=== PATIENT | female | born 1935 | race Caucasian/White ===

== ENCOUNTER → 2016-08-28 | Outpatient (CLI) | payer MEDICARE, BC ==
--- NOTE | 2016-08-28 17:40 | REP ---
Clinical: Trauma. Contusion. Technique: AP, lateral, bilateral oblique views of the right hand. Findings: There is acute fracture at the base of the fourth and fifth metacarpal bones. Underlying age-related osteopenia and degenerative changes appreciated. Impression: Acute fractures at the base of the fourth and fifth metacarpal bones. Signed by Roel Hunter MD 08/28/2016 05:31 P
== END ==
LOC: M WUC 17:17
PROVIDERS: ATTEND Physician Assistant
DX: S62.304A Unspecified fracture of fourth metacarpal bone, right hand, initial encounter for closed fracture (principal); S62.306A Unspecified fracture of fifth metacarpal bone, right hand, initial encounter for closed fracture; X58.XXXA Exposure to other specified factors, initial encounter; Y93.9 Activity, unspecified; Y92.9 Unspecified place or not applicable; Y99.8 Other external cause status; M89.9 Disorder of bone, unspecified; M19.041 Primary osteoarthritis, right hand

== ENCOUNTER → 2016-11-08 | Outpatient (CLI) | payer MEDICARE, BC ==
[2016-11-08 09:18] LABS: BASO % 0.4 % (0.0-1.0); EOS # 0.1 K/mm3 (0.0-0.50); EOS % 1.7 % (0.0-3.0); LARGE UNSTAINED CELL # 0.1 K/mm3 (0.0-0.4); LARGE UNSTAINED CELL % 1.4 % (0.0-4.0); LYMPH # 1.5 K/mm3 (1.5-4.5); LYMPH % 22.5 % (24.0-44.0); MEAN CORPUSCULAR HEMOGLOBIN 32.7 pg (27.0-33.0); MEAN CORPUSCULAR HGB CONC 32.6 g/dl (32.0-36.5); MEAN CORPUSCULAR VOLUME 100.2 fl (80.0-96.0); MONO # 0.4 K/mm3 (0.0-0.8); MONO % 6.7 % (0.0-5.0); NEUTROPHILS # 4.4 K/mm3 (1.8-7.7); NEUTROPHILS % 67.2 % (36.0-66.0); PLATELET COUNT, AUTOMATED 349 k/mm3 (150-450); RED CELL DISTRIBUTION WIDTH 12.8 % (11.5-14.5); WHITE BLOOD COUNT 6.5 K/mm3 (4.0-10.0)
[2016-11-08 09:47] LABS: ALBUMIN 3.7 GM/DL (3.2-5.2); ALBUMIN/GLOBULIN RATIO 1.28 (1.00-1.93); ALKALINE PHOSPHATASE 67 U/L (45-117); ALT/SGPT 13 U/L (12-78); ANION GAP 8 MEQ/L (8-16); AST/SGOT 9 U/L (15-37); BILIRUBIN,TOTAL 0.3 MG/DL (0.2-1.0); BLOOD UREA NITROGEN 15 MG/DL (7-18); CARBON DIOXIDE LEVEL 28 MEQ/L (21-32); CHLORIDE LEVEL 107 MEQ/L (98-107); CHOLESTEROL LEVEL 273 MG/DL (<200); CREATININE FOR GFR 0.76 MG/DL (0.55-1.02); GLOMERULAR FILTRATION RATE > 60.0 (>32); GLUCOSE, FASTING 106 MG/DL (83-110); POTASSIUM SERUM 4.6 MEQ/L (3.5-5.1); SODIUM LEVEL 143 MEQ/L (136-145); TOTAL PROTEIN 6.6 GM/DL (6.4-8.2); TRIGLYCERIDES LEVEL 161 MG/DL (<150)
== END ==
LOC: M WUC 08:14
PROVIDERS: ATTEND Family Medicine
DX: J44.9 Chronic obstructive pulmonary disease, unspecified (principal); E55.9 Vitamin D deficiency, unspecified; F03.91 Unspecified dementia, unspecified severity, with behavioral disturbance; E78.00 Pure hypercholesterolemia, unspecified

== ENCOUNTER 2018-02-17 00:53 | Emergency (ER) | payer MEDICARE, BC ==
[2018-02-17] MEDS: predniSONE 20 MG TAB PO (04:30)
== END 2018-02-17 04:51 | disposition home or self-care (01) ==
LOC: M ED 00:53
DX: L30.9 Dermatitis, unspecified (principal); Z88.8 Allergy status to other drugs, medicaments and biological substances; Z79.899 Other long term (current) drug therapy
CPT/HCPCS: 99282

== ENCOUNTER → 2018-04-09 | Outpatient (CLI) | payer MEDICARE, BC ==
[2018-04-09 08:45] LABS: BASO % 0.4 % (0.0-1.0); EOS # 0.2 10^3/uL (0.0-0.50); EOS % 2.1 % (0.0-3.0); HEMATOCRIT 44.2 % (36.0-47.0); HEMOGLOBIN 14.4 g/dl (12.0-15.5); IMMATURE GRANULOCYTE % 0.3 % (0-3.0); LYMPH # 1.9 10^3/uL (1.5-4.5); LYMPH % 25.2 % (24.0-44.0); MEAN CORPUSCULAR HEMOGLOBIN 31.5 pg (27.0-33.0); MEAN CORPUSCULAR HGB CONC 32.6 g/dl (32.0-36.5); MEAN CORPUSCULAR VOLUME 96.7 fl (80.0-96.0); MONO # 0.7 10^3/uL (0.0-0.8); MONO % 8.8 % (0.0-5.0); NEUTROPHILS # 4.8 10^3/uL (1.8-7.7); NEUTROPHILS % 63.2 % (36.0-66.0); PLATELET COUNT, AUTOMATED 325 10^3/uL (150-450); RED BLOOD COUNT 4.57 10^6/uL (4.00-5.40); RED CELL DISTRIBUTION WIDTH 13.1 % (11.5-14.5); WHITE BLOOD COUNT 7.5 10^3/uL (4.0-10.0)
[2018-04-09 09:17] LABS: ALBUMIN 3.8 GM/DL (3.2-5.2); ALBUMIN/GLOBULIN RATIO 1.36 (1.00-1.93); ALKALINE PHOSPHATASE 62 U/L (45-117); ALT/SGPT 14 U/L (12-78); ANION GAP 6 MEQ/L (8-16); AST/SGOT 11 U/L (7-37); BILIRUBIN,TOTAL 0.3 MG/DL (0.2-1.0); BLOOD UREA NITROGEN 18 MG/DL (7-18); CALCIUM LEVEL 10.7 MG/DL (8.8-10.2); CARBON DIOXIDE LEVEL 30 MEQ/L (21-32); CHLORIDE LEVEL 108 MEQ/L (98-107); CHOLESTEROL LEVEL 283 MG/DL (<200); CHOLESTEROL RISK RATIO 6.152 (<5); CREATININE FOR GFR 0.73 MG/DL (0.55-1.30); GLOMERULAR FILTRATION RATE > 60.0 (>32); GLUCOSE, FASTING 123 MG/DL (70-100); HDL CHOLESTEROL 46 MG/DL (>40); LDL CHOLESTEROL 186 MG/DL (<100); NON-HDL-C 237 MG/DL; POTASSIUM SERUM 4.4 MEQ/L (3.5-5.1); SODIUM LEVEL 144 MEQ/L (136-145); TOTAL PROTEIN 6.6 GM/DL (6.4-8.2); TRIGLYCERIDES LEVEL 255 MG/DL (<150)
== END ==
LOC: M WUC 08:07
DX: J44.9 Chronic obstructive pulmonary disease, unspecified (principal); E78.2 Mixed hyperlipidemia
CPT/HCPCS: 80053

== ENCOUNTER 2018-09-25 01:16 | Emergency (ER) | payer MEDICARE, BC ==
[~2018-09-25] VITALS: Ht 154.9 cm; Wt 61.8 kg
[~2018-09-25 01:16] MED LIST: ALEN70SO PO; ASPI81TA85 PO; B-12100T2 PO; C 50TAB PO; CALC600T60 PO; CO Q200C10 PO; DONETAB6 PO; FISH100049 PO; NAME28CA PO; PRED20TA PO; SERT-141 PO
[2018-09-25 01:17] VITALS: BP 170/81
[2018-09-25] MEDS ORDERED: predniSONE 20 MG TAB PO ONE (02:45)
== END 2018-09-25 02:40 | disposition home or self-care (01) ==
LOC: M ED 01:16
DX: S40.861A Insect bite (nonvenomous) of right upper arm, initial encounter (principal); S40.862A Insect bite (nonvenomous) of left upper arm, initial encounter; W57.XXXA Bitten or stung by nonvenomous insect and other nonvenomous arthropods, initial encounter; Y92.003 Bedroom of unspecified non-institutional (private) residence as the place of occurrence of the external cause; Y93.84 Activity, sleeping; F03.90 Unspecified dementia, unspecified severity, without behavioral disturbance, psychotic disturbance, mood disturbance, and anxiety; Z88.8 Allergy status to other drugs, medicaments and biological substances; Z79.899 Other long term (current) drug therapy; Z79.82 Long term (current) use of aspirin

== ENCOUNTER → 2019-04-12 | Outpatient (CLI) | payer MEDICARE, BC ==
[2019-04-12 10:09] LABS: BASO % 0.4 % (0.0-1.0); EOS # 0.2 10^3/uL (0.0-0.5); EOS % 2.3 % (0.0-3.0); HEMATOCRIT 44.8 % (36.0-47.0); LYMPH # 1.5 10^3/uL (1.5-5.0); MEAN CORPUSCULAR HEMOGLOBIN 31.1 pg (27.0-33.0); MEAN CORPUSCULAR HGB CONC 31.3 g/dl (32.0-36.5); MEAN CORPUSCULAR VOLUME 99.6 fl (80.0-96.0); MONO # 0.7 10^3/uL (0.0-0.8); MONO % 9.6 % (0.0-5.0); NEUTROPHILS # 4.7 10^3/uL (1.5-8.5); NEUTROPHILS % 66.3 % (36.0-66.0); PLATELET COUNT, AUTOMATED 338 10^3/uL (150-450); WHITE BLOOD COUNT 7.1 10^3/uL (4.0-10.0)
[2019-04-12 10:36] LABS: ALT/SGPT 17 U/L (12-78); BILIRUBIN,TOTAL 0.3 MG/DL (0.2-1.0); BLOOD UREA NITROGEN 12 MG/DL (7-18); CALCIUM LEVEL 10.5 MG/DL (8.8-10.2); CARBON DIOXIDE LEVEL 31 MEQ/L (21-32); CHLORIDE LEVEL 107 MEQ/L (98-107); CHOLESTEROL LEVEL 275 MG/DL (<200); CREATININE FOR GFR 0.72 MG/DL (0.55-1.30); GLOMERULAR FILTRATION RATE > 60.0 (>32); GLUCOSE, FASTING 94 MG/DL (70-100); POTASSIUM SERUM 4.2 MEQ/L (3.5-5.1); SODIUM LEVEL 143 MEQ/L (136-145); TRIGLYCERIDES LEVEL 246 MG/DL (<150)
[2019-04-12 10:37] LABS: ALBUMIN 3.5 GM/DL (3.2-5.2); CHOLESTEROL RISK RATIO 5.612 (<5); HDL CHOLESTEROL 49 MG/DL (>40); LDL CHOLESTEROL 177 MG/DL (<100); NON-HDL-C 226 MG/DL; TOTAL PROTEIN 6.9 GM/DL (6.4-8.2)
[2019-04-12 10:47] LABS: TOTAL 25(OH) VITAMIN D 47.2 NG/ML (30.0-100.0)
== END ==
LOC: M WUC 08:17
PROVIDERS: ATTEND Family Medicine
DX: F03.91 Unspecified dementia, unspecified severity, with behavioral disturbance (principal); J44.9 Chronic obstructive pulmonary disease, unspecified; E78.2 Mixed hyperlipidemia

== ENCOUNTER → 2020-04-10 | Outpatient (CLI) | payer MEDICARE, BC ==
[~2020-04-10] MED LIST changes: -ASPI81TA85 PO; +ASPI81TA86 PO
[2020-04-10 10:28] LABS: BASO % 0.5 % (0.0-1.0); EOS # 0.2 10^3/uL (0.0-0.5); EOS % 2.4 % (0.0-3.0); HEMATOCRIT 44.8 % (36.0-47.0); LYMPH # 1.8 10^3/uL (1.5-5.0); LYMPH % 26.5 % (24.0-44.0); MEAN CORPUSCULAR HEMOGLOBIN 30.4 pg (27.0-33.0); MEAN CORPUSCULAR HGB CONC 31.3 g/dl (32.0-36.5); MEAN CORPUSCULAR VOLUME 97.2 fl (80.0-96.0); MONO # 0.6 10^3/uL (0.0-0.8); MONO % 9.6 % (0.0-5.0); NEUTROPHILS % 60.7 % (36.0-66.0); PLATELET COUNT, AUTOMATED 406 10^3/uL (150-450); RED BLOOD COUNT 4.61 10^6/uL (4.00-5.40); WHITE BLOOD COUNT 6.6 10^3/uL (4.0-10.0)
[2020-04-10 10:56] LABS: ALBUMIN 3.5 GM/DL (3.2-5.2); ALT/SGPT 9 U/L (12-78); BILIRUBIN,TOTAL 0.3 MG/DL (0.2-1.0); BLOOD UREA NITROGEN 17 MG/DL (7-18); CALCIUM LEVEL 10.9 MG/DL (8.8-10.2); CARBON DIOXIDE LEVEL 29 MEQ/L (21-32); CHLORIDE LEVEL 107 MEQ/L (98-107); GLOMERULAR FILTRATION RATE > 60.0 (>32); GLUCOSE, FASTING 107 MG/DL (70-100); POTASSIUM SERUM 4.4 MEQ/L (3.5-5.1); SODIUM LEVEL 143 MEQ/L (136-145); TOTAL PROTEIN 6.7 GM/DL (6.4-8.2)
== END ==
LOC: M WUC 08:08
PROVIDERS: ATTEND Family Medicine
DX: F03.91 Unspecified dementia, unspecified severity, with behavioral disturbance (principal)

== ENCOUNTER 2021-02-14 18:23 | Observation (INO) | payer MEDICARE, BC ==
[~2021-02-14] VITALS: Ht 152.4 cm; Wt 51.1 kg
[2021-02-14] MEDS: ASPIRIN 81MG ENTERIC TABLET PO SCH (18:00)
[2021-02-14 21:02] LABS: BASO % 0.2 % (0.0-1.0); HEMATOCRIT 43.8 % (36.0-47.0); LYMPH # 1.1 10^3/uL (1.5-5.0); MEAN CORPUSCULAR HEMOGLOBIN 30.4 pg (27.0-33.0); MONO # 0.4 10^3/uL (0.0-0.8); MONO % 3.2 % (2.0-8.0); NEUTROPHILS # 10.6 10^3/uL (1.5-8.5); NEUTROPHILS % 87.4 % (36.0-66.0); PLATELET COUNT, AUTOMATED 386 10^3/uL (150-450); RED BLOOD COUNT 4.61 10^6/uL (4.00-5.40); WHITE BLOOD COUNT 12.2 10^3/uL (4.0-10.0)
--- NOTE | 2021-02-14 21:05 | REPVR ---
PROCEDURE INFORMATION: Exam: CT Head Without Contrast Exam date and time: 02/14/2021 8:42 PM Age: 85 years old Clinical indication: Dizziness; Additional info: Dizziness/dry heaves, eval for ich TECHNIQUE: Imaging protocol: Computed tomography of the head without contrast. Radiation optimization: All CT scans at this facility use at least one of these dose optimization techniques: automated exposure control; mA and/or kV adjustment per patient size (includes targeted exams where dose is matched to clinical indication); or iterative reconstruction. COMPARISON: No relevant prior studies available. FINDINGS: Brain: No intracranial mass, mass effect or midline shift. No acute intracranial hemorrhage. No CT evidence of acute cortical infarct. Ventricles, cisterns, and sulci are normal in size for age. Paranasal sinuses: Imaged paranasal sinuses are normally aerated. Mastoid air cells: Mastoid air cells and middle ear structures are normally aerated. Orbital cavity: Imaged orbits are unremarkable. Bones/joints: No calvarial fracture or destructive process. Soft tissues: No focal extracranial soft tissue swelling. IMPRESSION: No acute or concerning focal intracranial abnormality. Electronically signed by: Sree Allen On 02/14/2021 21:04:35 PM
--- NOTE | 2021-02-14 21:11 | REPVR ---
PROCEDURE INFORMATION: Exam: XR Chest Exam date and time: 02/14/2021 9:08 PM Age: 85 years old Clinical indication: Other: Dizzyness; Additional info: Dizziness TECHNIQUE: Imaging protocol: XR of the chest. Views: 2 views. COMPARISON: No relevant prior studies available. FINDINGS: Lungs: Degree of inflation of the lungs is normal. No evidence of pulmonary edema. No focal airspace process. No concerning parenchymal lung mass. Pleural spaces: No pleural effusion or pneumothorax. Heart/Mediastinum: Cardiac silhouette appears normal. No mediastinal adenopathy or hilar mass. Bones/joints: Osseous structures show no acute or concerning abnormality. IMPRESSION: No active or focal cardiopulmonary process. Electronically signed by: Sree Allen On 02/14/2021 21:10:50 PM
[2021-02-14 21:35] LABS: BLOOD UREA NITROGEN 17 MG/DL (7-18); CARBON DIOXIDE LEVEL 27 MEQ/L (21-32); CHLORIDE LEVEL 110 MEQ/L (98-107); CK-MB VALUE MASS 2.6 NG/ML (<3.6); CPK CREATINE PHOSPHOKINASE 96 U/L (26-192); CREATININE FOR GFR 0.66 MG/DL (0.55-1.30); FREE T4 0.81 NG/DL (0.76-1.46); GLOMERULAR FILTRATION RATE > 60.0 (>32); GLUCOSE, FASTING 137 MG/DL (70-100); MAGNESIUM LEVEL 2.1 MG/DL (1.8-2.4); MB/CK RELATIVE INDEX 2.71 (< OR =4); POTASSIUM SERUM 4.5 MEQ/L (3.5-5.1); SODIUM LEVEL 142 MEQ/L (136-145); THYROID STIMULATING HORMONE 0.294 uIU/ML (0.358-3.740); TROPONIN I < 0.02 NG/ML (< 0.10)
[2021-02-14] MEDS ORDERED: SERT50TA29 PO (21:59)
[2021-02-14] MEDS ORDERED: EPIN0.3I11 IM (21:59)
[2021-02-14] MEDS ORDERED: LIDOCAINE 2% 5ML JELLY UROJET TOP ONE (22:05)
[2021-02-14] MEDS ORDERED: ASPI81TA26 PO (22:56)
[2021-02-14] MEDS ORDERED: VITA-183 PO (23:04)
[2021-02-14] MEDS ORDERED: VITMTA PO (23:04)
[2021-02-14] MEDS ORDERED: [UNRECOGNIZED DRUG - CODE] PO (23:04)
[2021-02-14] MEDS ORDERED: QUET1TAB17 PO (23:04)
[2021-02-14] MEDS ORDERED: FISH1000 PO (23:04)
[2021-02-14] MEDS ORDERED: DONE10TA90 PO (23:04)
[2021-02-14] MEDS ORDERED: COQ1100C4 PO (23:04)
[2021-02-14] MEDS ORDERED: HOME MED LIST COMPLETE! XX SCH (23:05)
[2021-02-14] MEDS ORDERED: ACETAMINOPHEN TAB 650MG DOSE (2X325MG) PO PRN (23:15)
[2021-02-15 01:07] LABS: ALBUMIN 3.4 GM/DL (3.2-5.2); ALT/SGPT 12 U/L (12-78); AMYLASE 400 U/L (25-115); BILIRUBIN,TOTAL 0.2 MG/DL (0.2-1.0); BLOOD UREA NITROGEN 16 MG/DL (7-18); CALCIUM LEVEL 9.8 MG/DL (8.8-10.2); CARBON DIOXIDE LEVEL 28 MEQ/L (21-32); CHLORIDE LEVEL 111 MEQ/L (98-107); CREATININE FOR GFR 0.59 MG/DL (0.55-1.30); GLOMERULAR FILTRATION RATE > 60.0 (>32); GLUCOSE, FASTING 125 MG/DL (70-100); LIPASE 3716 U/L (73-393); POTASSIUM SERUM 4.1 MEQ/L (3.5-5.1); SODIUM LEVEL 143 MEQ/L (136-145); TOTAL PROTEIN 6.8 GM/DL (6.4-8.2)
--- NOTE | 2021-02-15 01:43 | HPEPDOC ---
General Date of Admission Feb 14, 2021 at 18:24 Date of Service: Feb 14, 2021 Chief Complaint The patient is a 85-year-old female admitted with a reason for visit of Presyncope,Sirs. Source: Patient, Family Exam Limitations: Dementia History of Present Illness Yanique Duong is an 85-year-old white female with significant history of dementia and former smoker who arrives with complaint of dizziness and presyncopal episode. Given patient's dementia HPI was assisted by patient's daughter Elizabeth who is at bedside. Pt presently denies adams, sinus congestion, sore throat, productive cough, sob, palpitations, chest pain, n/v/d, abdominal pain, weakness, sensory changes or syncope. Patient requesting to eat during exam. Reportedly, patient has been at baseline until today she was noted to bend over while in the kitchen and upon standing up reports some dizziness and then proceed to "violently drive heave" and described nausea. Patient sat down in a chair and proceeded to describe lightheadedness/dizziness for the next hour. There is a moment where patient leaned forward and it appeared as if she would pass out but she did not. Patient's daughter called other family members who are nurses to come and assess patient. Notably patient had elevated blood pressure on the right upper extremity 168/108 and left upper extremity 100/80. Her heart rate at this time was reportedly 48 patient was taken to the hospital and fortunately by that time she no longer had any complaints. Patient's daughter reports that the patient recently had seen Dr. Danielle clark and there was a question about whether or not patient had some carotid stenosis daughter to bring records for review. Of note, patient mildly tachycardic 98-1 02. Leukocytosis 12.2. Labile blood pressures 163/101 and later 147/97 heart rate without episode of bradycardia in ED. EKG normal sinus rhythm. CT head nonacute. Chest x-ray nonacute. UA negative. Given the nausea lipase was tested and showed elevation at 3647. CT abdomen pelvis pending. Patient will be admitted for further evaluation management of presenting concern Home Medications Scheduled Ascorbic Acid (Vitamin C) 500 Mg Tab, 500 MG PO DAILY, (Reported) Aspirin (Aspirin EC) 81 Mg Tablet.dr, 81 MG PO QPM, (Reported) TAKES WITH DINNER Calcium Carbonate (Calcium) 600 Mg Tab, 600 MG PO DAILY, (Reported) Cholecalciferol (Vitamin D3) (Vitamin D3) 25 Mcg Capsule, 25 MCG PO DAILY, (Reported) Cyanocobalamin (Vitamin B-12) (B-12) 1,000 Mcg Tablet.er, 1,000 MCG PO DAILY, (Reported) Donepezil HCl (Donepezil HCl) 10 Mg Tablet, 10 MG PO DAILY, (Reported) Memantine HCl (Namenda Xr) 28 Mg Cap, 28 MG PO DAILY, (Reported) Multivitamins (Thera M Plus Tablet) 1 Each Tablet, 1 TAB PO 2XW, (Reported) MONDAYS AND THURSDAYS [place]-3 Fatty Acids/Fish Oil (Fish Oil 1,000 mg Capsule) 1 Each Capsule, 1,000 MG PO DAILY, (Reported) Quetiapine Fumarate (Quetiapine Fumarate) 25 Mg Tablet, 25 MG PO QHS, (Reported) Sertraline HCl (Sertraline HCl) 50 Mg Tablet, 50 MG PO QHS, (Reported) Ubidecarenone (Co Q-10) 100 Mg Capsule, 100 MG PO DAILY, (Reported) Scheduled PRN Epinephrine (Epinephrine) 0.3 Mg/0.3 Ml Auto.injct, 0.3 MG IM ASDIRECTED PRN for ANAPHYLAXIS, (Reported) Allergies Uncoded Allergies: ANTIHISTAMINES (Allergy, Severe, RASH, 10/02/03) Past Medical History Medical History Dementia, former smoker Surgical History Right elbow and wrist surgery Family History Significant Family History: No pertinent family hx Social History * Smoker: former Smoker Alcohol: Denies Drugs: denies Recent Travel/Sick Contacts: Denies: Recent travel, Recent sick contacts Psychosocial History: Dementia Patient lives with her daughter Elizabeth who is her facilities maintenance worker A-FIB/CHADSVASC A-FIB History Current/History of A-Fib/PAF?: No Current PO Anticoag Therapy: No Review of Systems Constitutional: Denies: Chills, Fever, Night Sweats Eyes: Denies: Pain, Vision change ENT: Denies: Head Aches, Ear Pain, Dysphagia Skin: Denies: Rash, Lesions, Breakdown Pulmonary: Reports: Cough; Denies: Dyspnea Cardiovascular: Reports: Lt Headedness; Denies: Chest Pain, Palpitations, Orthopnea, Paroxysmal Noc. Dyspnea Gastrointestinal: Denies: Nausea, Vomiting, Abdominal Pain, Diarrhea Genitourinary: Denies: Dysuria, Frequency, Incontinence, Retention Hematologic: Denies: Bruising, Bleeding Excessively Musculoskeletal: Denies: Neck Pain, Back Pain, Joint Pain, Muscle Pain, Spasms Neurological: Denies: Weakness, Numbness, Change in speech, Confusion Psych: Reports: Mood Normal; Denies: Depression, Memory Issues Other systems Limited given patient's dementia and current sundown Physical Examination General Exam: Positive: Alert, No Acute Distress Eye Exam: Positive: PERRLA, Conjunctiva & lids normal, EOMI; Negative: Sclera icteric ENT Exam: Positive: Atraumatic, Mucous membr. moist/pink, Pharynx Normal Neck Exam: Positive: Supple; Negative: JVD, thyromegaly Chest Exam: Positive: Clear to auscultation, Normal air movement Heart Exam: Positive: Rate Normal, Regular Rhythm, Normal S1, Normal S2; Negative: Murmurs, Rubs Telemetry: Positive: No significant arrhythmia Abdomen Exam: Positive: Normal bowel sounds, Soft; Negative: Tenderness, Hepatospenomegaly Extremity Exam: Positive: Normal pulses; Negative: Clubbing, Cyanosis, Edema Skin Exam: Positive: Nl turgor and temperature; Negative: Breakdown, Lesion Neuro Exam: Positive: Normal Gait, Normal Speech, Cranial Nerves 3-12 NL, Reflexes 2+ Psych Exam: Positive: Mood NL, Other (Patient at baseline mentation. Oriented x2-3.) Vital Signs Vital Signs Date Time Temp Pulse Resp B/P (MAP) Pulse Ox O2 Delivery O2 Flow Rate FiO2 02/15/21 01:23 85 95 02/15/21 01:15 18 163/82 (109) Room Air 02/14/21 18:24 97.9 Laboratory Data Labs 24H Laboratory Tests 2 02/14/21 20:42: Immature Granulocyte % (Auto) 0.2, Neutrophils (%) (Auto) 87.4H, Lymphocytes (%) (Auto) 9.0L, Monocytes (%) (Auto) 3.2, Eosinophils (%) (Auto) 0.0, Basophils (%) (Auto) 0.2, Neutrophils # (Auto) 10.6H, Lymphocytes # (Auto) 1.1L, Monocytes # (Auto) 0.4, Eosinophils # (Auto) 0.0, Basophils # (Auto) 0.0, Nucleated Red Blood Cells % (auto) 0.0, Urine Color YELLOW, Urine Appearance CLEAR, Urine pH 5.0, Urine Specific [place] 1.018, Urine Protein NEGATIVE, Urine Glucose (UA) NEGATIVE, Urine Ketones NEGATIVE, Urine Blood NEGATIVE, Urine Nitrite NEGATIVE, Urine Bilirubin NEGATIVE, Urine Urobilinogen 0.2, Urine Leukocyte Esterase NEGATIVE, Urine WBC (Auto) 2, Urine RBC (Auto) 1, Urine Hyaline Casts (Auto) 0, Urine Bacteria (Auto) NEGATIVE, Urine Squamous Epithelial Cells 1, Urine Mucus (Auto) SMALL, Urine Sperm (Auto) , Anion Gap 5L, Glomerular Filtration Rate > 60.0, Calcium Level 10.0, Magnesium Level 2.1, Total Creatine Kinase 96, Creatine Kinase MB 2.6, Creatine Kinase MB Relative Index 2.71, Troponin I < 0.02, Thyroid Stimulating Hormone (TSH) 0.294L, Free Thyroxine 0.81 02/15/21 00:29: Anion Gap 4L, Glomerular Filtration Rate > 60.0, Calcium Level 9.8, Lactic Acid Level 1.0, Total Bilirubin 0.2, Aspartate Amino Transf (AST/SGOT) 10, Alanine Aminotransferase (ALT/SGPT) 12, Alkaline Phosphatase 68, Total Protein 6.8, Albumin 3.4, Albumin/Globulin Ratio 1.0L, Amylase Level 400H, Lipase 3716H CBC/BMP Laboratory Tests 02/14/21 20:42 02/15/21 00:29 Microbiology Microbiology 02/15/21 Blood Culture, Received Pending Assessment/Plan 1. Dizziness and presyncopal event: CT head negative with nonfocal neuro exam. -Positional component at onset however patient with presyncopal event while seated hours later. Consider BPPV. -There is a concern for cardiogenic association as patient had a heart rate in the 40s when family checked at home. Plan to monitor patient, telemetry. -Given reports from family will obtain carotid ultrasound in a.m. -Consider echo and further work-up pending patient response. -Orthostatic vitals -A.m. labs -Consider differential 2. SIRS in setting of new found renal mass and enhancing lesion in the right liver dome: Patient with episode of nausea/dry heaving. She is with leukocytosis and tachycardia. Chest x-ray and UA unremarkable. Blood cultures sent. Amylase/lipase elevated. Pro-Michael and lactic sent. CT abdomen pelvis given lab findings, concern for pancreatitis and patient with reported GI complaints during episode of presyncope. During course of admission, CT abdomen pelvis returned with concerns regarding right renal cell carcinoma given a rather large mass of the right renal pole described as enhancing measuring 7.1 x 8.4 x 9.1 cm. Also, 1.3 cm right liver dome lesion. -Discussion with patient and family still needs to occur with goals of care/level of aggressive intervention plan. -If further work-up is desired; anticipate heme onc consult. -A.m. lab work -Note: Mentioned in CT, is a right minimal groundglass opacity. Patient without respiratory complaints beyond a sporadic cough that patient has had over time in setting of former smoker. Consider antibiotic coverage pending course. Check pro calcitonin. 3. Right renal pole hydronephrosis: As noted on CT. Patient without any urinary complaints. Will check postvoid residual. Consider urological consult inpatient if patient becomes symptomatic versus outpatient. 4. Elevated lipase in setting of remote pancreatitis: As noted on CT abdomen pelvis. Patient without abdominal complaints presently. She only have nauisea dry heaving during the episode RN CARDIOLOGY. -Plan for monitoring for GI complaints. -Repeat lipase to determine if trending upwards or downwards. -Consider n.p.o./aggressive fluid hydration accordingly. -Consider GI work-up pending patient family discussion for level of aggression. 5. Hypertension: No reported history of this. In setting of ER presentation understandably can run high. Reportedly, during the event family member had noticed discrepancy between one arm from the left when they took vital signs. Vital signs were repeated on both arms while in ER and they were consistent. Given the fact that there is no discrepancy between either arm-we will hold off on CT chest at present. -Plan to monitor blood pressure and consider adding norvasc for half-way control. 6. Former smoker: Patient's daughter did report the patient has a sporadic dry cough on occasion. She does not require inhalers on a regular basis. She quit smoking several years ago. Clear to auscultation, chest x-ray nonacute. -Plan for as needed breathing treatments if patient becomes short of breath or wheezy. 7. Alzheimer's dementia: -Encourage patient expression. -Continue patient home medications. -Incorporate patient family centered care. Daughter Elizabeth at bedside for tonight as patient does sundown. -As needed antianxiety/agitation to be determined pending patient response. DVT: SCDs CODE STATUS: Full code. Patient daughter is to bring in a MOLST form with specified interventions. She did not endorse patient DNR/DNI during admission exam. Patient's daughter Elizabeth is the executor/power of criminal attorney for patient. Dispo planning: Pend pt response/ level of aggressive measures Plan / VTE VTE Prophylaxis Ordered?: Yes RALPH REYES NP Feb 15, 2021 01:36
[2021-02-15] MEDS: QUEtiapine FUMARATE 25 MG TAB PO SCH ×2 (01:54→22:20)
[2021-02-15] MEDS: SERTRALINE HCL 50 MG TAB PO SCH ×2 (01:54→22:19)
[2021-02-15 02:13] LABS: C REACTIVE PROTEIN QUANTITATIV 0.86 MG/DL (0.00-0.30)
[2021-02-15] MEDS ORDERED: ISOVUE-370 76% 100ML VIAL As Ordered ONE (02:48)
[2021-02-15 03:50] LABS: RSV AMPLIFICATION NEGATIVE (NEGATIVE)
--- NOTE | 2021-02-15 04:39 | REPVR ---
PROCEDURE INFORMATION: Exam: CT Abdomen And Pelvis With Contrast Exam date and time: 02/15/2021 3:03 AM Age: 85 years old Clinical indication: Nausea and vomiting; Prior surgery; Additional info: N/v, elevated lipase TECHNIQUE: Imaging protocol: Computed tomography of the abdomen and pelvis with contrast. Radiation optimization: All CT scans at this facility use at least one of these dose optimization techniques: automated exposure control; mA and/or kV adjustment per patient size (includes targeted exams where dose is matched to clinical indication); or iterative reconstruction. Contrast material: ISOVUE 370; Contrast volume: 100 ml; Contrast route: INTRAVENOUS (IV); COMPARISON: CR Chest, 2 view PA, Lat 2021-02-14 20:41 FINDINGS: Pleural spaces: Minimal right lower lobe pleural ground-glass opacity. Mediastinal space: Mild gastroesophageal thickening with a small hiatal hernia. Liver: 1 cm benign liver cyst. Enhancing lesion in the right liver dome measures approximately 1.3 cm and appears to have associated portal and hepatic vein communication, likely a focal area of transient hepatic attenuation difference, or tiny fistula. Gallbladder and bile ducts: Cholelithiasis. Pancreas: Couple tiny punctate pancreatic calcifications compatible with remote pancreatitis. Spleen: Normal. No splenomegaly. Adrenal glands: Small bilateral adrenal adenomas measuring up to 9 mm. Kidneys and ureters: Right inferior renal pole enhancing mass with central low attenuating spoke wheel pattern, with the mass measuring 7.1 x 8.4 x 9.1 cm. Renal cell carcinoma till proven otherwise. Moderate right superior renal pole hydronephrosis with a transition point at the ureteral pelvic junction, likely from a stricture, or extrinsic narrowing as result of the large mass. Mass demonstrates some neovascularization and mild adjacent stranding, evidence of invasion into the perinephric fat. However, recommend liver mass protocol given the large renal lesion. Stomach and bowel: Moderate diverticulosis without acute inflammatory changes. Appendix: Appendectomy. Intraperitoneal space: Unremarkable. No free air. No significant fluid collection. Vasculature: Mild to moderate aortic and iliac artery atherosclerotic calcification. Mild moderate renal artery origin stenosis. Lymph nodes: Unremarkable. No enlarged lymph nodes. Urinary bladder: Unremarkable as visualized. Reproductive: Hysterectomy. Bones/joints: Small right hip joint effusion. Soft tissues: Unremarkable. Other findings: No definite invasion IMPRESSION: 1. Right inferior renal pole enhancing mass with central low attenuating spoke wheel pattern, with the mass measuring 7.1 x 8.4 x 9.1 cm. Renal cell carcinoma till proven otherwise. 2. Moderate right superior renal pole hydronephrosis with a transition point at the ureteral pelvic junction, likely from a stricture, or extrinsic narrowing as result of the large mass. 3. Mass demonstrates some neovascularization and mild adjacent stranding, evidence of invasion into the perinephric fat. 4. Cholelithiasis. 5. Enhancing lesion in the right liver dome measures approximately 1.3 cm and appears to have associated portal and hepatic vein communication, likely a focal area of transient hepatic attenuation difference, or tiny fistula. However, recommend liver mass protocol given the large renal lesion. COMMENTS: 1. Consistent with the [employer]'s Incidental Findings Committee white paper (J Am Antwon Radiol 2017): Any incidental adrenal lesion less than or equal to 1 cm is likely benign. No follow-up imaging is recommended for these lesions per consensus recommendations based on imaging criteria. Further lab evaluation could be pursued if warranted based on clinical findings. 2. Consistent with the [employer]'s Incidental Findings Committee white paper (J Am Antwon Radiol 2018): Any incidental renal lesion less than 1 cm or classified as too small to characterize, or any incidental cystic renal lesion characterized as simple-appearing, is likely benign. No follow-up imaging is recommended for these lesions per consensus recommendations based on imaging criteria. Electronically signed by: Gordon Curran On 02/15/2021 04:38:42 AM
--- NOTE | 2021-02-15 04:41 | REPVR ---
PROCEDURE INFORMATION: Exam: US Duplex Bilateral Extracranial Arteries Exam date and time: 02/15/2021 4:22 AM Age: 85 years old Clinical indication: Dizziness; Additional info: Dizziness, presyncopal event TECHNIQUE: Imaging protocol: Real-time Duplex ultrasound scan of the bilateral carotid and vertebral arteries combining barber scale, color Doppler and spectral waveform analysis. Bilateral exam. COMPARISON: CT Head without contrast 2021-02-14 20:37 FINDINGS: Right common carotid artery: Diffuse common carotid artery intimal thickening and mild atherosclerosis. Right internal carotid artery: Diffuse mild atherosclerotic disease in the proximal ICA. Right ICA/CCA ratio: Within normal limits. Right external carotid artery: Mild atherosclerotic disease at its origin. Right vertebral artery: Unremarkable. Antegrade flow. Left common carotid artery: Diffuse common carotid artery intimal thickening and mild atherosclerosis. Left internal carotid artery: Diffuse mild atherosclerotic disease in the proximal ICA. Left ICA/CCA ratio: Within normal limits. Left external carotid artery: Mild atherosclerotic disease at the origin. Left vertebral artery: Unremarkable. Antegrade flow. IMPRESSION: Minimal bilateral stenosis. REFERENCES: SRU CRITERIA. The degree of internal carotid artery stenosis is based on criteria defined by the Society of Radiologists in Ultrasound (SRU). Normal is no stenosis. Mild is less than 50% stenosis. Moderate is 50-69% stenosis. Severe is greater than 69% stenosis to near occlusion. Near occlusion is a markedly narrowed lumen. Total occlusion is no detectable patent lumen. Electronically signed by: Gordon Curran On 02/15/2021 04:40:51 AM
--- NOTE | 2021-02-15 05:44 | ECGEPIP ---
[facility] - ED Test Date: 2021-02-14 Pat Name: MEGAN MOHAMUD Department: Room: - Gender: Female [place] Carver: jillian : 1935 Requested By: IGNACIO KIDD Order Number: [id number] Reading MD: Ruddy Rivas Measurements Intervals [place] Rate: 95 P: 40 TN: 176 QRS: 10 QRSD: 74 T: 72 QT: 362 QTc: 454 Interpretive Statements Normal sinus rhythm Septal infarct , age undetermined NO PRIORS FOR COMPARISON Electronically Signed on 02-15-2021 5:44:14 EDT by Ruddy Rivas
--- NOTE | 2021-02-15 06:33 | IPNPDOC ---
Text Note Date of Service The patient was seen on 02/15/21. NOTE Pt and daughter seen at bedside to discuss CT findings. Pt denies complaints and reports disorientation regarding where she is. Discussed plans for post void residual andto ensure no problems urinating given hydronephrosis. Daughter and Elizabeth JIMENEZ, at bedside- Pt's daughter confirmed paperwork on DNR. Also, she describes interest in further imaging and detail regarding inter ventions/ workup for the R renal mass and liver finding at this time. She understandably takes the news with the differential tearfully. Time spent with pt and family. Will adjust code status to DNR with trial intubation. Will order imaging for liver lesion. VS,Fishbone, I+O VS, Fishbone, I+O Laboratory Tests 02/14/21 20:42 02/15/21 00:29 Vital Signs Date Time Temp Pulse Resp B/P (MAP) Pulse Ox O2 Delivery O2 Flow Rate FiO2 02/15/21 06:00 156/89 (111) 02/15/21 05:53 94 18 96 Room Air 02/14/21 18:24 97.9 RALPH REYES NP Feb 15, 2021 06:33
[2021-02-15 06:53] LABS: HEMOGLOBIN 13.4 g/dl (12.0-15.5); MEAN CORPUSCULAR HEMOGLOBIN 30.1 pg (27.0-33.0); MEAN CORPUSCULAR HGB CONC 31.9 g/dl (32.0-36.5); MEAN CORPUSCULAR VOLUME 94.4 fl (80.0-96.0); PLATELET COUNT, AUTOMATED 374 10^3/uL (150-450); RED BLOOD COUNT 4.45 10^6/uL (4.00-5.40); WHITE BLOOD COUNT 10.2 10^3/uL (4.0-10.0)
[2021-02-15 07:20] LABS: BLOOD UREA NITROGEN 14 MG/DL (7-18); CALCIUM LEVEL 9.5 MG/DL (8.8-10.2); CARBON DIOXIDE LEVEL 28 MEQ/L (21-32); CHLORIDE LEVEL 110 MEQ/L (98-107); CREATININE FOR GFR 0.54 MG/DL (0.55-1.30); GLOMERULAR FILTRATION RATE > 60.0 (>32); GLUCOSE, FASTING 87 MG/DL (70-100); LIPASE 1172 U/L (73-393); POTASSIUM SERUM 3.8 MEQ/L (3.5-5.1); SODIUM LEVEL 143 MEQ/L (136-145)
[2021-02-15 08:30] VITALS: BP 145/67
[2021-02-15] MEDS ORDERED: MULTIVITAMINS/MINERALS THERAP 1 TAB PO SCH (09:00)
[2021-02-15] MEDS: ASCORBIC ACID 500 MG TAB PO SCH (09:28)
[2021-02-15] MEDS: DONEPEZIL 5 MG TAB PO SCH (09:28)
[2021-02-15] MEDS: MEMANTINE 5MG TABLET (NAMENDA) PO SCH ×2 (09:28→22:20)
[2021-02-15 10:43] VITALS: BP 142/82
[2021-02-15] MEDS ORDERED: SLF 3 ML SYR IV PRN (11:40)
[2021-02-15 12:21] VITALS: BP 145/68
[2021-02-15] MEDS ORDERED: ALPRAZolam 0.5 MG TAB PO PRN (12:45)
--- NOTE | 2021-02-15 14:57 | SMCUROLCON ---
Urology Consultation General Date of Consultation 02/15/21 Reason For Consultation This patient is seen for Presyncope,Sirs. History of Present Illness This is an 85 y/o F w/ PMH significant for Alzheimer's dementia admitted to the hospital after being for a presyncopal episode, dizziness, and elevated lipase. During her w/u in the ER a CT A/P w/ IV contrast was performed and it was notable for a 9.1cm R enhancing inferior pole mass concerning for RCC, as well as mild to moderate R superior pole hydro. No lymphadenopathy was seen. It was also notable for a possible 1.3cm lesion in the dome of her liver. She denied flank or abdominal pain. She is cared for primary by her daughter Elizabeth. Elizabteh denied ever seeing blood in her urine. Past Medical History Medical History see HPI Surgical Hstory Vaginal Hysterectomy Right Elbow Surgery Right Wrist Surgery Medications Current Medications Current Medications Medications (Trade) Dose Ordered Sig/Bigg Route PRN Reason Start Time Stop Time Status Last Admin Dose Admin Acetaminophen (Tylenol Tab) 650 mg Q4H PRN PO MILD PAIN or TEMP > 101 02/14/21 23:15 Alprazolam (Xanax) 0.5 mg Q6HP PRN PO AGITATION 02/15/21 12:45 Amlodipine Besylate (Norvasc) 2.5 mg DAILY PO 02/15/21 09:00 02/15/21 09:28 Ascorbic Acid (Vitamin C) 500 mg DAILY PO 02/15/21 09:00 02/15/21 09:28 Aspirin (Ecotrin) 81 mg DAILY@1800 PO 02/14/21 18:00 Donepezil HCl (AriCEPT) 10 mg DAILY PO 02/15/21 09:00 02/15/21 09:28 Home Med (Home Med List Complete!) ASDIRECTED XX 02/14/21 23:05 02/14/21 23:07 DC Memantine (Namenda) 10 mg BID PO 02/15/21 09:00 02/15/21 09:28 Multivitamins (Theragram-M) 1 tab MoTh@0900 PO 02/15/21 09:00 02/15/21 09:28 Quetiapine Fumarate (SEROquel) 25 mg QHS PO 02/14/21 21:00 02/15/21 01:54 Sertraline HCl (Zoloft) 50 mg QHS PO 02/14/21 21:00 02/15/21 01:54 Sodium Chloride (Saline Lock Flush) 2 ml ASDIRECTED PRN IV SEE LABEL COMMENTS 02/15/21 11:40 Sodium Chloride (Saline Lock Flush) 2 ml SLF IV 02/15/21 14:00 Allergies Allergies: Uncoded Allergies: ANTIHISTAMINES (Allergy, Severe, RASH, 10/02/03) Review of Systems Constitutional: Denies: Fever, Chills, Sweats Pulmonary: Denies: Dyspnea, Cough Cardiovascular: Denies Chest Pain, Denies Palpitations Gastrointestinal: Denies: Nausea, Vomiting, Abdominal Pain Genitourinary: Denies: Hematuria Musculoskeletal: Denies: Back Pain Psych: Reports: Mood Normal Physical Examination General Exam: Cooperative, No Acute Distress Chest Exam: Normal air movement Heart Exam: Rate Normal Abdomen Exam: Soft; No: Tenderness, Mass Skin Exam: Nl turgor and temperature Neuro Exam: Normal Speech Psych Exam: Mood NL Vital Signs/I&O Vital Signs Date Time Temp Pulse Resp B/P (MAP) Pulse Ox O2 Delivery O2 Flow Rate FiO2 02/15/21 10:43 97.2 96 18 142/82 (102) 93 Room Air Laboratory Data 24H Labs Laboratory Tests 2 02/14/21 20:42: Immature Granulocyte % (Auto) 0.2, Neutrophils (%) (Auto) 87.4H, Lymphocytes (%) (Auto) 9.0L, Monocytes (%) (Auto) 3.2, Eosinophils (%) (Auto) 0.0, Basophils (%) (Auto) 0.2, Neutrophils # (Auto) 10.6H, Lymphocytes # (Auto) 1.1L, Monocytes # (Auto) 0.4, Eosinophils # (Auto) 0.0, Basophils # (Auto) 0.0, Nucleated Red Blood Cells % (auto) 0.0, Urine Color YELLOW, Urine Appearance CLEAR, Urine pH 5.0, Urine Specific [place] 1.018, Urine Protein NEGATIVE, Urine Glucose (UA) NE GATIVE, Urine Ketones NEGATIVE, Urine Blood NEGATIVE, Urine Nitrite NEGATIVE, Urine Bilirubin NEGATIVE, Urine Urobilinogen 0.2, Urine Leukocyte Esterase NEGATIVE, Urine WBC (Auto) 2, Urine RBC (Auto) 1, Urine Hyaline Casts (Auto) 0, Urine Bacteria (Auto) NEGATIVE, Urine Squamous Epithelial Cells 1, Urine Mucus (Auto) SMALL, Urine Sperm (Auto) , Anion Gap 5L, Glomerular Filtration Rate > 60.0, Calcium Level 10.0, Magnesium Level 2.1, Total Creatine Kinase 96, Creatine Kinase MB 2.6, Creatine Kinase MB Relative Index 2.71, Troponin I < 0.02, Thyroid Stimulating Hormone (TSH) 0.294L, Free Thyroxine 0.81 02/15/21 00:29: Anion Gap 4L, Glomerular Filtration Rate > 60.0, Calcium Level 9.8, Erythrocyte Sedimentation Rate 39H, Lactic Acid Level 1.0, Total Bilirubin 0.2, Aspartate Amino Transf (AST/SGOT) 10, Alanine Aminotransferase (ALT/SGPT) 12, Alkaline Phosphatase 68, C-Reactive Protein, Quantitative 0.86H, Total Protein 6.8, Albumin 3.4, Albumin/Globulin Ratio 1.0L, Amylase Level 400H, Lipase 3716H, Procalcitonin <0.05 02/15/21 00:34: Coronavirus (COVID-19)(PCR) NEGATIVE, Influenza Type A (RT-PCR) NEGATIVE, Influenza Type B (RT-PCR) NEGATIVE, Respiratory Syncytial Virus (PCR) NEGATIVE 02/15/21 06:34: Nucleated Red Blood Cells % (auto) 0.0, Anion Gap 5L, Glomerular Filtration Rate > 60.0, Calcium Level 9.5, Lipase 1172H, Ammonia 25 CBC/BMP Laboratory Tests 02/14/21 20:42 02/15/21 00:29 02/15/21 06:34 Microbiology Microbiology 02/15/21 Blood Culture, Received Pending Assessment This is an 85 y/o F w/ Alzheimer's dementia, admitted for presyncope and elevated lipase, incidentally found to have a 9.1cm enhancing lesion on her R kidney. This mass appears to be confined to the kidney w/ no sign of lymphadenopathy. I suspect the abnormality seen in the liver is unrelated to the mass in the kidney. She will be undergoing an MRI tomorrow to further evaluate this. Despite the patient's age and early dementia, she is very healthy. I discussed w/ her daughter and granddaughter that the treatment for this would be a radical nephrectomy. Despite her age, I think she would do well w/ this surgery and this would likely be curative (assuming the liver abnormality does not appear to be a metastasis). We would do this via robotic approach. Her daughter, Elizabeth, is her healthcare proxy, and would like to get her set up for this. Plan - CT images discussed w/ patient and family - agree w/ MRI abdomen tomorrow to better evaluate the liver abnormality and to assess for possible R renal vein tumor thrombus - assuming the MRI does not look concerning for a liver met and there is no R renal vein tumor thrombus, I will get her set up for a R robotic radical nephrectomy - will f/u MRI results and arrange surgery (which will likely be done w/i the next 2-3 wks if we can get preop clearance arranged) LEXX CALDERA MD Feb 15, 2021 14:57
[2021-02-15 15:32] VITALS: BP 143/74
--- NOTE | 2021-02-15 15:44 | IPNPDOC ---
Text Note Date of Service The patient was seen on 02/15/21. NOTE Subjective Pt was seen and examined at bedside this morning and c/o no symptoms. Daughter was with her and is the main historian. Pt has not felt symptomatic since admission and BP was better controlled today. Denied NAVA, chest pain, SOB, palpitations, abdominal pain, N/V/D/C. Objective Gen: Pt is pleasant and in no acute distress. Psych: A+Ox3. HEENT: PERRLA, no cervical lymphadenopathy, no JVD. RESP: CTA b/l no rhonchi, wheeze, or crackles. CVS: RRR, no murmur. ABD: Soft, non-tender, non-distended, normoactive bowel sounds. MSK: Plantarflexion 5/5 b/l. Skin: No rash, normal temp, no swelling. Imaging Chest X-Ray 02/14: Reported as- No active or focal cardiopulmonary process. Head CT 02/14: Reported as- No acute or concerning focal intracranial abnormality. Duplex,carotid US 02/15: Reported as- Minimal bilateral stenosis. CT ABD & PELVIS WITH CONTRAST 02/15: Reported as- 1. Right inferior renal pole enhancing mass with central low attenuating spoke wheel pattern, with the mass measuring 7.1 x 8.4 x 9.1 cm. Renal cell carcinoma till proven otherwise. 2. Moderate right superior renal pole hydronephrosis with a transition point at the ureteral pelvic junction, likely from a stricture, or extrinsic narrowing as result of the large mass. 3. Mass demonstrates some neovascularization and mild adjacent stranding, evidence of invasion into the perinephric fat. 4. Cholelithiasis. 5. Enhancing lesion in the right liver dome measures approximately 1.3 cm and appears to have associated portal and hepatic vein communication, likely a focal area of transient hepatic attenuation difference, or tiny fistula. Assessment Pt is an 85 yo F w PMHx of Alzheimers dementia and depression who presented to ED after a 2 hr episode of dizziness/presyncope with assoc nausea and dry heaving induced by rising from a bent over position. On initial evaluation patient was asymptotic, but imaging was concerning for RCC and a liver lesion, therefore pt was admitted for further assessment. Plan 1. Renal Mass and Liver Lesion Imaging is concerning for RCC and liver metastasis needs to be ruled out. Urology has been consulted and will continue to assess the case after MRI abdomen results. 2. HTN Urgency-resolved HTN is still uncontrolled. We are giving Amlodipine, and SBP in 150s today. We will continue to monitor BP. 3. Presyncopal Episode CELLULOID TRIMMER Imaging negative for acute etiologies of syncope. We will consider orthostatic vitals. 4. Hydronephrosis Likely 2/2 mass effect from renal mass 5. Alzhemiers Dementia Continuing at home meds. 6. Depression Continuing sertraline. 7. DVT Prophylaxis TEDs and Seqs. Continuing at home Aspirin. Disposition Pt will stay at least one more night for imaging tomorrow and continued surgical consultation. GME ATTESTATION My faculty preceptor for this patient encounter was physically present during the encounter and was fully available. All aspects of the patient interview, examination, medical decision making process, and medical care plan development were reviewed and approved by the faculty preceptor. The faculty preceptor is aware and concurs with the plan as stated in the body of this note and will attest to such by his co-signature. VS,Fishbone, I+O VS, Fishbone, I+O Laboratory Tests 02/14/21 20:42 02/15/21 00:29 02/15/21 06:34 Vital Signs Date Time Temp Pulse Resp B/P (MAP) Pulse Ox O2 Delivery O2 Flow Rate FiO2 02/15/21 15:32 97.3 93 18 143/74 (97) 93 Room Air GME ATTESTATION GME ATTESTATION My faculty preceptor for this patient encounter was physically present during the encounter and was fully available. All aspects of the patient interview, examination, medical decision making process, and medical care plan development were reviewed and approved by the faculty preceptor. The faculty preceptor is aware and concurs with the plan as stated in the body of this note and will attest to such by his/her cosignature. ATTENDING NOTE I, Cj Henderson MD, have independently examined this patient and performed my own physical exam, as well as reviewed the documentation and edited where necessary. I have discussed in detail with the resident / student the findings and plan of treatment as documented by the resident / student and edited their note. I agree with their findings and treatment plan and have edited their documentation. LEXX POLANCO OMS-3 Feb 15, 2021 15:44 TRINO ARSHAD D.O. Feb 16, 2021 16:58 CJ HENDERSON MD Feb 18, 2021 10:58
[2021-02-15 18:04] VITALS: BP_SYST 138; BP_SYST 147; BP_SYST 159; BP_DIAS 70; BP_DIAS 75; BP_DIAS 80
[2021-02-15] MEDS: SLF 3 ML SYR IV SCH ×2 (18:20→22:20)
[2021-02-15] MEDS: ASPIRIN 81MG ENTERIC TABLET PO SCH (18:20)
[2021-02-15 20:00] VITALS: BP 147/82
[2021-02-16] MEDS: SLF 3 ML SYR IV SCH ×2 (05:38→14:00)
[2021-02-16 06:06] LABS: HEMATOCRIT 43.1 % (36.0-47.0); HEMOGLOBIN 13.8 g/dl (12.0-15.5); MEAN CORPUSCULAR HEMOGLOBIN 30.3 pg (27.0-33.0); MEAN CORPUSCULAR VOLUME 94.7 fl (80.0-96.0); PLATELET COUNT, AUTOMATED 375 10^3/uL (150-450); RED BLOOD COUNT 4.55 10^6/uL (4.00-5.40); WHITE BLOOD COUNT 10.2 10^3/uL (4.0-10.0)
[2021-02-16 06:35] LABS: BLOOD UREA NITROGEN 16 MG/DL (7-18); CALCIUM LEVEL 9.6 MG/DL (8.8-10.2); CARBON DIOXIDE LEVEL 28 MEQ/L (21-32); CHLORIDE LEVEL 110 MEQ/L (98-107); CREATININE FOR GFR 0.59 MG/DL (0.55-1.30); GLOMERULAR FILTRATION RATE > 60.0 (>32); GLUCOSE, FASTING 110 MG/DL (70-100); SODIUM LEVEL 142 MEQ/L (136-145)
[2021-02-16 08:08] VITALS: BP 171/77
[2021-02-16] MEDS: MEMANTINE 5MG TABLET (NAMENDA) PO SCH (09:38)
[2021-02-16] MEDS: DONEPEZIL 5 MG TAB PO SCH (09:38)
[2021-02-16 09:39] VITALS: BP 171/77
[2021-02-16] MEDS: ASCORBIC ACID 500 MG TAB PO SCH (09:39)
[2021-02-16 12:00] VITALS: BP 124/56
[2021-02-16] MEDS ORDERED: PROHANCE 279.3MG/ML 15ML VIAL As Ordered ONE (12:52)
--- NOTE | 2021-02-16 13:44 | IPNPDOC ---
Text Note Date of Service The patient was seen on 02/16/21. NOTE Subjective Pt was seen and examined at bedside and had no symptoms or complaints. Her daughter is with her helping her to understand the plan. Denied NAVA, SOB, chest pain, palpitations, dizziness, N/V/D/C, abdominal pain. Objective Gen: Pt is resting comfortably in no distress. Psych: A+O to person and place. HEENT: PERRLA, no cervical lymphadenopathy, moist oral cavity. RESP: CTA b/l no rhonchi, wheeze, or crackles. Distal pulses 2+ b/l. CVS: RRR, no murmur, rubs, or gallop. ABD: Soft, NT, ND, normoactive bowel sounds. MSK: Plantarflexion 5/5 b/l. Ext: No distal edema. Imaging Chest X-Ray 02/14: Reported as- No active or focal cardiopulmonary process. Head CT 02/14: Reported as- No acute or concerning focal intracranial abnormality. Duplex,carotid US 02/15: Reported as- Minimal bilateral stenosis. CT ABD & PELVIS WITH CONTRAST 02/15: Reported as- 1. Right inferior renal pole enhancing mass with central low attenuating spoke wheel pattern, with the mass measuring 7.1 x 8.4 x 9.1 cm. Renal cell carcinoma till proven otherwise. 2. Moderate right superior renal pole hydronephrosis with a transition point at the ureteral pelvic junction, likely from a stricture, or extrinsic narrowing as result of the large mass. 3. Mass demonstrates some neovascularization and mild adjacent stranding, evidence of invasion into the perinephric fat. 4. Cholelithiasis. 5. Enhancing lesion in the right liver dome measures approximately 1.3 cm and appears to have associated portal and hepatic vein communication, likely a focal area of transient hepatic attenuation difference, or tiny fistula. Assessment Pt is an 85 yo F w PMHx of Alzheimers dementia and depression who presented to ED after a 2 hr episode of dizziness/presyncope with assoc nausea and dry heaving induced by positional change. On initial evaluation patient was asymptotic, but imaging was concerning for RCC and a liver lesion, therefore pt was admitted for further assessment and urology consultation. Plan 1. Renal Mass and Liver Lesion Urology plan for partial vs radical nephrectomy is pending MRI abdomen results to assess liver lesion. ECHO ordered for surgical optimization 2. HTN BP is controlled after dose of amlodipine, but SBP spiked to 170s before dose this morning. We will continue to monitor BP. 3. Presyncopal Episode HOTEL MAID Orthostatic vitals negative. Imaging ruled out acute etiologies of syncope. 4. Alzhemiers Dementia We are continuing at home meds. 5. Depression We are continuing sertraline. 6. DVT Prophylaxis TEDs and SCDs and home dose of Aspirin. Disposition Pt discharge home with daughter is pending MRI results and further urology consultation. ADDENDUM: Discharged today after MRI results were received, please see DC summary. GME ATTESTATION My faculty preceptor for this patient encounter was physically present during the encounter and was fully available. All aspects of the patient interview, examination, medical decision making process, and medical care plan development were reviewed and approved by the faculty preceptor. The faculty preceptor is aware and concurs with the plan as stated in the body of this note and will attest to such by his co-signature. VS,Fishbone, I+O VS, Fishbone, I+O Laboratory Tests 02/16/21 05:32 Vital Signs Date Time Temp Pulse Resp B/P (MAP) Pulse Ox O2 Delivery O2 Flow Rate FiO2 02/16/21 12:00 97.3 85 18 124/56 (78) 94 Room Air I&O- Last 24 Hours up to 6 AM 02/16/21 06:00 Intake Total 1380 ml Output Total 600 ml Balance 780 ml LEXX POLANCO OMS-3 Feb 16, 2021 13:44 TRINO ARSHAD D.O. Feb 16, 2021 17:00
[2021-02-16 15:53] VITALS: BP 134/68
--- NOTE | 2021-02-16 15:56 | REP ---
INDICATION: liver mass seen on ct. COMPARISON: CT 02/15/2021. TECHNIQUE: Multiple sequences obtained in the axial coronal planes prior to and following the intravenous administration of 12 cc ProHance. FINDINGS: There is a small hiatal hernia. In the right dome of the liver there is an enhancing nodule approximately 1 cm in diameter which appears to communicate with a feeding and draining vessel. This is most compatible with a vascular malformation or hemangioma. There is a subcentimeter cyst more inferiorly in the right lobe and another is seen in the caudate lobe. Another subcentimeter cyst is seen in the left lobe of the liver. There is focal fatty infiltration along the falciform ligament. Spleen is unremarkable. There is bilateral adrenal gland thickening without a discrete mass. No pancreatic mass is seen. Multiple subcentimeter gallstones are seen in the gallbladder. A large heterogeneously enhancing mass of the lower right kidney measures approximately 9 cm in diameter. I suspect renal cell carcinoma. There is moderate hydronephrosis of the upper pole the right kidney secondary to stricture or compression of the ureteropelvic junction. There is no adenopathy or free fluid in the abdomen. IMPRESSION: There is a 1 cm vascular malformation or hemangioma of the right dome of the liver. Subcentimeter cysts also seen in the liver. Large enhancing mass lower right kidney I suspect represents renal cell carcinoma. Moderate hydronephrosis of the upper pole of the right kidney due to stricture or compression of the right ureteropelvic junction. <Electronically signed by Seymour Jolly > 02/16/21 2127
[2021-02-16] MEDS ORDERED: AMLO25TA PO (16:12)
--- NOTE | 2021-02-16 17:29 | DS.PDOC ---
Discharge Summary General Date of Admission Feb 14, 2021 at 18:24 Date of Discharge February 17, 2021 Primary Care Physician: Bharti Marley MD Attending Physician: CJ HENDERSON MD Discharge Summary PROCEDURES PERFORMED DURING STAY: None. ADMITTING DIAGNOSES: Presyncopal event Right renal mass Right renal pole hydronephrosis Elevated lipase Hypertension Alzheimer's dementia DISCHARGE DIAGNOSES: Presyncopal event Right renal mass Right renal pole hydronephrosis Elevated lipase Hypertension Alzheimer's dementia COMPLICATIONS/CHIEF COMPLAINT: Presyncope,Sirs. HISTORY OF PRESENT ILLNESS: 85-year-old female who presented to the hospital after a episode of dizziness at home. The patient noted that she had bent over while in the kitchen and upon standing up reported dizziness which did not resolve on its own. The patient was noted to feel nauseous and started to dry heave. The patient did not bring up any vomitus. The patient was able to sit down in a chair but the dizziness persisted. At home, the patient's family measured her blood pressure and noted it to be elevated. They also noted her to have a low heart rate around 50 bpm. Due to the patient's persistent symptoms without resolution on rest, she came to the emergency department for evaluation. On arrival, the patient was noted to be mildly tachycardic with a mild leukocytosis. She did have elevated blood pressure readings. Additional work- up revealed an elevated lipase level. CT abdomen and pelvis were ordered to follow-up and rule out pancreatitis. On this imaging, she was found to have a large renal mass and a possible liver mass. HOSPITAL COURSE: The patient was admitted to the hospital. She had orthostatic vital signs which were negative. She was started on oral amlodipine for blood pressure control. She did not have any recurrent episodes. She was monitored on telemetry and was noted to have some PVCs with occasional runs of trigeminy. However, she was asymptomatic during these episodes. Due to the patient's recent concern for carotid artery stenosis, a carotid artery ultrasound was ordered, although this would not explain her presyncope type symptoms. Results are listed below. Due to the patient's new found renal mass, urology was consulted and began planning for likely surgery pending the results of abdominal MRI. Due to the patient's possible liver mass, an abdominal MRI was ordered to rule out metastatic disease and the mass was noted to likely be a hemangioma. There are also some liver cysts noted. An echocardiogram was ordered for presyncope work-up as well as for surgical optimization for expected partial versus radical nephrectomy. The patient did not have any recurrent presyncopal episodes during her admission. She was discharged home to follow-up with her PCP as well as urology. The echocardiogram results were not available on discharge and can be reviewed by the patient's PCP when available. DISCHARGE MEDICATIONS: Please see below. ALLERGIES: Please see below. PHYSICAL EXAMINATION ON DISCHARGE: VITAL SIGNS: Please see below. GENERAL: Alert, comfortable, in no acute distress HEENT: Normocephalic, atraumatic, moist mucous membranes NECK: Supple, trachea midline CARDIOVASCULAR: Regular rate and rhythm, normal S1 and S2. No murmurs, rubs, or gallops RESPIRATORY: Clear to auscultation bilaterally with equal air entry bilaterally. No wheezing, rhonchi, or rales. ABDOMEN: Soft, nontender, nondistended, bowel sounds present. EXTREMITIES: No cyanosis or edema. Pulses 2+/4 in bilateral upper and lower ext remities SKIN: [place], warm, dry NEUROLOGIC: No focal deficits appreciated PSYCHIATRIC: Mood and affect appropriate LABORATORY DATA: Please see below. IMAGING: - CXR No active or focal cardiopulmonary process. - Head CT No acute or concerning focal intracranial abnormality - Vascular US Minimal bilateral stenosis. - Abdomen/pelvis CT 1. Right inferior renal pole enhancing mass with central low attenuating spoke wheel pattern, with the mass measuring 7.1 x 8.4 x 9.1 cm. Renal cell carcin edouard till proven otherwise. 2. Moderate right superior renal pole hydronephrosis with a transition point at the ureteral pelvic junction, likely from a stricture, or extrinsic narrowing as result of the large mass. 3. Mass demonstrates some neovascularization and mild adjacent stranding, evidence of invasion into the perinephric fat. 4. Cholelithiasis. 5. Enhancing lesion in the right liver dome measures approximately 1.3 cm and appears to have associated portal and hepatic vein communication, likely a focal area of transient hepatic attenuation difference, or tiny fistula. However, recommend liver mass protocol given the large renal lesion. - Abdomen MRI There is a 1 cm vascular malformation or hemangioma of the right dome of the liver. Subcentimeter cysts also seen in the liver. Large enhancing mass lower right kidney I suspect represents renal cell carcinoma. Moderate hydronephrosis of the upper pole of the right kidney due to stricture or compression of the right ureteropelvic junction. PROGNOSIS: Fair ACTIVITY: As tolerated. DIET: As tolerated DISCHARGE PLAN/DISPOSITION: Home with Urology follow up DISCHARGE INSTRUCTIONS: Please take all medications as prescribed Follow up with PCP Follow up with urology ITEMS TO FOLLOWUP ON ON OUTPATIENT: Echocardiogram results Renal mass Hepatic hemangioma and cyst DISCHARGE CONDITION: Stable TIME SPENT ON DISCHARGE: 35 minutes. Vital Signs/I&Os Vital Signs Date Time Temp Pulse Resp B/P (MAP) Pulse Ox O2 Delivery O2 Flow Rate FiO2 02/16/21 15:53 97.3 88 20 134/68 (90) 96 Room Air I&O- Last 24 Hours up to 6 AM 02/16/21 06:00 Intake Total 1380 ml Output Total 600 ml Balance 780 ml Laboratory Data Labs 24H Laboratory Tests 2 02/16/21 05:32: Nucleated Red Blood Cells % (auto) 0.0, Anion Gap 4L, Glomerular Filtration Rate > 60.0, Estimated Mean Plasma Glucose 126H, Hemoglobin A1c 6.0, Calcium Level 9.6 CBC/BMP Laboratory Tests 02/16/21 05:32 Microbiology Microbiology 02/15/21 Blood Culture - Preliminary, Resulted No growth after 24 hours . All specim... Discharge Medications Scheduled Amlodipine Besylate (Amlodipine Besylate) 2.5 Mg Tablet, 2.5 MG PO DAILY Ascorbic Acid (Vitamin C) 500 Mg Tab, 500 MG PO DAILY, (Reported) Aspirin (Aspirin EC) 81 Mg Tablet.dr, 81 MG PO QPM, (Reported) TAKES WITH DINNER Calcium Carbonate (Calcium) 600 Mg Tab, 600 MG PO DAILY, (Reported) Cholecalciferol (Vitamin D3) (Vitamin D3) 25 Mcg Capsule, 25 MCG PO DAILY, (Reported) Cyanocobalamin (Vitamin B-12) (B-12) 1,000 Mcg Tablet.er, 1,000 MCG PO DAILY, (Reported) Donepezil HCl (Donepezil HCl) 10 Mg Tablet, 10 MG PO DAILY, (Reported) Memantine HCl (Namenda Xr) 28 Mg Cap, 28 MG PO DAILY, (Reported) Multivitamins (Thera M Plus Tablet) 1 Each Tablet, 1 TAB PO 2XW, (Reported) MONDAYS AND THURSDAYS [place]-3 Fatty Acids/Fish Oil (Fish Oil 1,000 mg Capsule) 1 Each Capsule, 1,000 MG PO DAILY, (Reported) Quetiapine Fumarate (Quetiapine Fumarate) 25 Mg Tablet, 25 MG PO QHS, (Reported) Sertraline HCl (Sertraline HCl) 50 Mg Tablet, 50 MG PO QHS, (Reported) Ubidecarenone (Co Q-10) 100 Mg Capsule, 100 MG PO DAILY, (Reported) Scheduled PRN Epinephrine (Epinephrine) 0.3 Mg/0.3 Ml Auto.injct, 0.3 MG IM ASDIRECTED PRN for ANAPHYLAXIS, (Reported) Allergies Uncoded Allergies: ANTIHISTAMINES (Allergy, Severe, RASH, 10/02/03) GME ATTESTATION GME ATTESTATION My faculty preceptor for this patient encounter was physically present during the encounter and was fully available. All aspects of the patient interview, examination, medical decision making process, and medical care plan development were reviewed and approved by the faculty preceptor. The faculty preceptor is aware and concurs with the plan as stated in the body of this note and will atte st to such by his/her cosignature. ATTENDING NOTE I, Cj Henderson MD, have independently examined this patient and performed my own physical exam, as well as reviewed the documentation and edited where necessary. I have discussed in detail with the resident / student the findings and plan of treatment as documented by the resident / student and edited their note. I agree with their findings and treatment plan and have edited their documentation. Total time spent on this discharge including coordination of care, review of chart, documentation and actual patient contact is around 40 minutes TRINO ARSHAD D.O. Feb 16, 2021 17:29 CJ HENDERSON MD Feb 18, 2021 11:09
--- NOTE | 2021-02-17 08:54 | ECHO ---
ECHOCARDIOGRAM DATE OF PROCEDURE: 02/16/2021 Age: Gender: Female Height: 160 cm Weight: 51 kg REFERRING PHYSICIAN: Dr. Rufina Javier INDICATION: Syncope MEASUREMENTS: 2D Measurements: LVOT: 1.9 CM Interventricular septum: 1.16 cm Posterior wall: 1.2 cm Left ventricle diastole: 3.7 cm Left ventricle systole: 2.3 cm Aortic root: 3.7 cm Left atrium: 2.9 cm Doppler Measurements: No aortic stenosis No aortic regurgitation Aortic valve velocity: 115 cm/s LVOT velocity: 107 cm/s LVOT VTI: 18.0 cm No mitral regurgitation No mitral stenosis Mitral E velocity: 81.0 cm/s Mitral deceleration time: 207 m/s Trace tricuspid regurgitation No pulmonic regurgitation MITRAL ANNULAR TISSUE DOPPLER E prime septal: 4.7 cm/s E prime lateral: 5.4 cm/s DESCRIPTION: Rhythm was sinus with occasional to frequent premature ventricular contractions (PVCs). Image quality was fair. This was a 2D, M-mode, color flow Doppler, and pulsed-wave Doppler examination including mitral annular tissue Doppler. CONCLUSIONS: 1. Normal left ventricle internal dimensions and wall thickness. Normal regional left ventricle (LV) wall motion and wall thickening. Normal LV systolic function with left ventricular ejection fraction (LVEF) 70-75% by visual estimate. Grade 1 LV diastolic dysfunction. Normal right ventricle size and systolic function. 2. Moderate mitral annular calcification. No mitral regurgitation or stenosis. 3. No pericardial effusion. 4. Otherwise, normal-appearing echocardiogram/Doppler findings. MTDD
== END 2021-02-16 17:25 | disposition home or self-care (01) ==
LOC: M ED 18:23 → M ED INP 18:24 → ENRESERV 02-15 08:05 → M PCU 02-15 10:19
PROVIDERS: ADMIT Internal Medicine; ATTEND Internal Medicine
DX: R55 Syncope and collapse (principal); N28.89 Other specified disorders of kidney and ureter; N13.30 Unspecified hydronephrosis; R74.8 Abnormal levels of other serum enzymes; I10 Essential (primary) hypertension; G30.9 Alzheimer's disease, unspecified; Z79.82 Long term (current) use of aspirin; Z79.899 Other long term (current) drug therapy; Z88.8 Allergy status to other drugs, medicaments and biological substances
CPT/HCPCS: 36415; 70450; 71046; 74177; 74183; 80048; 80053; 81001; 82140; 82150; 82550; 82553; 83036; 83605; 83690; 83735; 84145; 84439; 84443; 84484; 85025; 85027; 85652; 86140; 87040; 87631; 93005; 93306; 93880; 99285; A9576; G0378; Q9967

== ENCOUNTER → 2021-02-22 | Outpatient (CLI) | payer MEDICARE, BC ==
[~2021-02-22] MED LIST changes: +AMLO25TA PO; +ASPI81TA26 PO; +COQ1100C4 PO; +DONE10TA90 PO; +EPIN0.3I11 IM; +FISH1000 PO; +QUET1TAB17 PO; +SERT50TA29 PO; +VITA-183 PO; +VITMTA PO; +[UNRECOGNIZED DRUG - CODE] PO
[2021-02-22 10:05] LABS: HEMATOCRIT 41.4 % (36.0-47.0); HEMOGLOBIN 13.2 g/dl (12.0-15.5); MEAN CORPUSCULAR HEMOGLOBIN 30.1 pg (27.0-33.0); MEAN CORPUSCULAR HGB CONC 31.9 g/dl (32.0-36.5); MEAN CORPUSCULAR VOLUME 94.3 fl (80.0-96.0); PLATELET COUNT, AUTOMATED 406 10^3/uL (150-450); RED BLOOD COUNT 4.39 10^6/uL (4.00-5.40); WHITE BLOOD COUNT 9.6 10^3/uL (4.0-10.0)
[2021-02-22 10:17] LABS: INR 0.98; PROTHROMBIN TIME 13.4 SECONDS (12.7-14.5)
[2021-02-22 10:18] LABS: PARTIAL THROMBOPLASTIN TIME 29.2 SECONDS (25.9-37.0)
[2021-02-22 10:31] LABS: ALBUMIN 3.2 GM/DL (3.2-5.2); ALT/SGPT 14 U/L (12-78); BILIRUBIN,TOTAL 0.3 MG/DL (0.2-1.0); BLOOD UREA NITROGEN 14 MG/DL (7-18); CALCIUM LEVEL 10.6 MG/DL (8.8-10.2); CARBON DIOXIDE LEVEL 29 MEQ/L (21-32); CHLORIDE LEVEL 110 MEQ/L (98-107); CREATININE FOR GFR 0.64 MG/DL (0.55-1.30); GLOMERULAR FILTRATION RATE > 60.0 (>32); GLUCOSE, FASTING 118 MG/DL (70-100); SODIUM LEVEL 143 MEQ/L (136-145); TOTAL PROTEIN 6.6 GM/DL (6.4-8.2)
== END ==
LOC: M WUC 08:08
PROVIDERS: ATTEND Urology
DX: Z01.818 Encounter for other preprocedural examination (principal); N28.89 Other specified disorders of kidney and ureter

== ENCOUNTER → 2021-02-27 | Outpatient (CLI) | payer MEDICARE, BC | LOC: M LABSMTC 11:17 | PROVIDERS: ATTEND Anesthesiology | DX: Z01.812 Encounter for preprocedural laboratory examination (principal); Z20.822 Contact with and (suspected) exposure to COVID-19 ==

== ENCOUNTER 2021-03-04 07:30 | Inpatient (IN) | payer MEDICARE, BC ==
[~2021-03-04] VITALS: Ht 152.4 cm; Wt 62.1 kg
[~2021-03-04 07:30] MED LIST changes: +LR 1,000 ML IV ONE; +ceFAZolin SOD 2 GM in IV 1 EA IV ONE
[2021-03-04] MEDS: DOCUSATE SODIUM 100MG CAPSULE PO SCH ×2 (09:00→21:13)
[2021-03-04] MEDS ORDERED: LIDOCAINE 1% SDV 30ML VIAL As Ordered ONE (12:31)
[2021-03-04] MEDS ORDERED: BUPIVACAINE HCL 0.25% 30ML VIAL As Ordered ONE (12:31)
[2021-03-04] MEDS ORDERED: oxyCODONE 5MG TAB PO PRN (12:48)
[2021-03-04] MEDS ORDERED: HYDROMORPHONE HCL 0.5 MG/ 0.5 ML SYRINGE (J1170 PER 1) IV PRN (12:48)
[2021-03-04] MEDS ORDERED: LR 1,000 ML IV SCH (12:48)
[2021-03-04] MEDS ORDERED: ONDANSETRON 4MG/2ML VIAL IV PRN ×2 (12:48→13:05)
[2021-03-04] MEDS ORDERED: fentaNYL 100 MCG/2 ML INJECTION (J3010) IV PRN (12:48)
[2021-03-04] MEDS ORDERED: PERCOCET 5MG/325MG TAB PO PRN (13:05)
[2021-03-04] MEDS ORDERED: ACETAMINOPHEN TAB 650MG DOSE (2X325MG) PO PRN (13:05)
[2021-03-04] MEDS ORDERED: NS 1,000 ML IV SCH (13:05)
[2021-03-04] MEDS ORDERED: propofoL 200 MG/20 ML VIAL As Ordered ONE (13:40)
[2021-03-04] MEDS ORDERED: dexameTHASONE 4 MG/ML 1ML VIAL (J1100 PER 1MG) As Ordered ONE (13:40)
[2021-03-04] MEDS ORDERED: LIDOCAINE 2% 100MG/5ML SDV (FOR ANES.) As Ordered ONE (13:40)
[2021-03-04] MEDS ORDERED: ROCURONIUM BROMIDE 50 MG/5 ML VIAL As Ordered ONE ×3 (13:40→17:10)
[2021-03-04] MEDS ORDERED: SUGAMMADEX SODIUM 500 MG/5 ML VIAL (BRIDION) As Ordered ONE (13:40)
[2021-03-04] MEDS ORDERED: fentaNYL 250 MCG/5 ML INJECTION (J3010) As Ordered ONE (13:40)
[2021-03-04] MEDS ORDERED: ONDANSETRON 4MG/2ML VIAL As Ordered ONE (13:40)
[2021-03-04] MEDS ORDERED: HYDROmorphone HCL 2 MG/ML 1ML VIAL As Ordered ONE (13:57)
[2021-03-04] MEDS ORDERED: hydrALAZINE 20MG/ML 1ML VIAL (J0360 PER 20MG) As Ordered ONE (15:03)
--- NOTE | 2021-03-04 18:14 | ROOPDOC ---
[facility] Report Of Operation Report of Operation DATE OF PROCEDURE: 03/04/21 PREPROCEDURE DIAGNOSIS: Right Renal Neoplasm. POSTPROCEDURE DIAGNOSIS: Right Renal Neoplasm. PROCEDURE: Right Robotic-assisted Laparoscopic Radical Nephrectomy (adrenal- sparing). SURGEON: Lexx Caldera MD DIRECT RESPONSE CONSULTANT: Saba Quiros NP ANESTHESIA: General OPERATIVE INDICATIONS: This is an 85 year old female found to have a 9cm enhancing mass on her right kidney. She is brought to the operating room for a radical nephrectomy for treatment of this likely malignant lesion. DESCRIPTION OF PROCEDURE: The patient was brought to the operating room and general anesthesia was induced. Prophylactic antibiotics were infused. A Rangel catheter was inserted into the bladder under sterile conditions. The patient was then placed in the left lateral decubitus position. All pressure points were appropriately padded and an axillary roll was placed. He was secured to the table with tape. The patient was then prepped and draped in the usual sterile fashion. The initial incision was for an 8mm port in line with the 11th rib along the lateral rectus margin. A Veress needle was then utilized to achieve the pneumoperitoneum. An 8mm port was then placed in through this incision and through which the camera was inserted. There were no injuries from Veress needle placement or initial trocar placement. The remaining ports were then placed under vision. The right hand robotic port was placed along the costal margin. An other 5 mm port was placed just inferior to the xyphoid for access for a liver retractor. A 12mm robotic port was placed just inferior to the camera port, also on the lateral rectus margin. The left hand robotic port was placed between the anterior-superior iliac spine and the umbilicus. A 15mm payroll human resources assistant port was placed inferior and medial to the camera port. The robot was then docked. We began by lifting up the liver with a laparoscopic locking Allis clamp. Next the right colon was dissected off of Gerota's fascia. We then Kocherized the duodenum. At this point the inferior vena cava (IVC) was identified. A plane was made onto the lateral aspect of the IVC. The patient had one right renal vein and one right renal artery. The artery was carefully dissected and then ligated with 3 Weck clips. It was then transected, leaving 2 clips on the stay side. The renal vein was then carefully dissected. Next, a robotic 45mm stapler was utilized to ligate and transect the right renal vein. Once the hilum was taken, a plane onto the upper pole of the kidney was created and the right adrenal gland was mobilized off of the kidney. The kidney was then carefully dissected on all sides until it was only connected by the right ureter. The ureter was then ligated with Weck clips and completed transected in between. Once the kidney was free, it was placed in a large Endocatch bag for future retrieval. We then checked for hemostasis and it appeared excellent. Yudelka hemostatic agent was then placed in the nephrectomy bed. The robot was undocked. We then used a Shaq-Nikos fascial closure device to place a #0 Vicryl free tie through the fascia of the 15 mm camera port site. We then extended the 12 mm port site and used it as the extraction incision. We then dissected down to the fascia. The fascia was then extended using electrocautery. The muscle was bluntly spread. The specimen was then extracted through this incision. It was handed off the table to send for pathology. We then closed the fascia of the extraction incision using a running #0 Vicryl suture. At this point, the abdomen was reinsufflated and we looked back in with the camera and there was no bleeding underneath the extraction site. No abdominal contents were caught within the closure either. We then removed all the ports under direct vision and there was no bleeding from any of the port sites. At this point, the previously placed #0 Vicryl free ties were tied down and all the incisions were thoroughly irrigated. The subcutaneous tissue of the extraction incision was then reapproximated using interrupted #3-0 Vicryl suture. We then closed the skin of each site using a running #4-0 subcuticular Monocryl stitch. Local anesthetic was then applied to each incision and Dermabond was then applied and this marked the conclusion of the procedure. The patient was then taken out of the left lateral decubitus position, awakened from anesthesia and transported to the recovery room in stable condition. ESTIMATED BLOOD LOSS: 50 mL INTRAOPERATIVE COMPLICATIONS: None SPECIMENS: Right kidney. PLAN: The patient will be admitted to the hospital postoperatively and she will be discharged home once her renal function is stable, her pain is controlled and she is tolerating a regular diet. LEXX CALDERA MD Mar 04, 2021 18:14
[2021-03-04 18:56] LABS: HEMATOCRIT 42.5 % (36.0-47.0); HEMOGLOBIN 13.1 g/dl (12.0-15.5); MEAN CORPUSCULAR HGB CONC 30.8 g/dl (32.0-36.5); MEAN CORPUSCULAR VOLUME 97.3 fl (80.0-96.0); PLATELET COUNT, AUTOMATED 367 10^3/uL (150-450); RED BLOOD COUNT 4.37 10^6/uL (4.00-5.40); WHITE BLOOD COUNT 18.6 10^3/uL (4.0-10.0)
[2021-03-04 19:20] VITALS: BP 128/72
[2021-03-04 19:35] LABS: CALCIUM LEVEL 9.7 MG/DL (8.8-10.2); CREATININE FOR GFR 0.95 MG/DL (0.55-1.30); GLOMERULAR FILTRATION RATE 59.4 (>32); POTASSIUM SERUM 4.1 MEQ/L (3.5-5.1)
[2021-03-04 19:50] VITALS: BP 126/66
[2021-03-04 20:20] VITALS: BP 126/65
[2021-03-04] MEDS ORDERED: SERTRALINE HCL 50 MG TAB PO SCH (21:00)
[2021-03-04] MEDS ORDERED: QUEtiapine FUMARATE 25 MG TAB PO SCH (21:00)
[2021-03-04] MEDS ORDERED: ASPIRIN 81MG ENTERIC TABLET PO SCH (21:00)
[2021-03-04] MEDS: DONEPEZIL 5 MG TAB PO SCH (21:13)
[2021-03-04] MEDS: ceFAZolin SOD 1 GM in D5W MINI-BAG PLUS 50 ML IV SCH (21:14)
[2021-03-04 21:20] VITALS: BP 128/70
[2021-03-04 22:20] VITALS: BP 131/70
[2021-03-04 23:20] VITALS: BP 131/71
[2021-03-04] MEDS: PERCOCET 5MG/325MG TAB PO PRN (23:37)
[2021-03-05 00:20] VITALS: BP 131/71
[2021-03-05 04:20] VITALS: BP 115/62
[2021-03-05] MEDS: ceFAZolin SOD 1 GM in D5W MINI-BAG PLUS 50 ML IV SCH (04:31)
[2021-03-05 06:56] LABS: HEMATOCRIT 37.7 % (36.0-47.0); MEAN CORPUSCULAR HEMOGLOBIN 30.2 pg (27.0-33.0); MEAN CORPUSCULAR HGB CONC 31.8 g/dl (32.0-36.5); MEAN CORPUSCULAR VOLUME 94.7 fl (80.0-96.0); PLATELET COUNT, AUTOMATED 323 10^3/uL (150-450); RED BLOOD COUNT 3.98 10^6/uL (4.00-5.40)
[2021-03-05 07:15] LABS: BLOOD UREA NITROGEN 15 MG/DL (7-18); CARBON DIOXIDE LEVEL 24 MEQ/L (21-32); CHLORIDE LEVEL 107 MEQ/L (98-107); CREATININE FOR GFR 0.94 MG/DL (0.55-1.30); GLOMERULAR FILTRATION RATE > 60.0 (>32); GLUCOSE, FASTING 114 MG/DL (70-100); POTASSIUM SERUM 4.6 MEQ/L (3.5-5.1); SODIUM LEVEL 140 MEQ/L (136-145)
[2021-03-05] MEDS: DONEPEZIL 5 MG TAB PO SCH (08:10)
[2021-03-05] MEDS: DOCUSATE SODIUM 100MG CAPSULE PO SCH (08:10)
[2021-03-05] MEDS: PERCOCET 5MG/325MG TAB PO PRN ×2 (08:11→14:09)
[2021-03-05 08:12] VITALS: BP 124/84
[2021-03-05] MEDS ORDERED: NAMENDA 28 MG PO SCH (09:00)
--- NOTE | 2021-03-05 09:16 | IPNPDOC ---
Subjective Review oF Systems Chief Complaint The patient is a 85-year-old female admitted with a reason for visit of Renal Mass. Events since Last Encounter No acute events o/n. Good pain control. No n/v. No f/c/ns. Objective Physical Examination General Exam: Alert, Cooperative, No Acute Distress ABDOMEN EXAM: Soft, Tenderness (mild incisional), Other (nondistended; incisions clean/dry/intact) Skin Exam: Nl turgor and temperature Neuro Exam: Normal Speech Psych Exam: Mental status NL, Mood NL Other physical findings catheter draining clear yellow urine Vital Signs/I&O Vital Signs Date Time Temp Pulse Resp B/P (MAP) Pulse Ox O2 Delivery O2 Flow Rate FiO2 03/05/21 08:53 20 Nasal Cannula 2.0 03/05/21 08:12 104 124/84 03/05/21 08:11 92 03/05/21 04:20 97.5 I&O- Last 24 Hours up to 6 AM 03/05/21 06:00 Intake Total 2400 ml Output Total 1275 ml Balance 1125 ml Laboratory Data Labs 24H Laboratory Tests 2 03/04/21 18:43: Nucleated Red Blood Cells % (auto) 0.0, Anion Gap 4L, Glomerular Filtration Rate 59.4, Calcium Level 9.7 03/05/21 06:30: Nucleated Red Blood Cells % (auto) 0.0, Anion Gap 9, Glomerular Filtration Rate > 60.0, Calcium Level 9.0 CBC/BMP Laboratory Tests 03/04/21 18:43 03/05/21 06:30 Assessment/Plan Date Seen The patient was seen on 03/05/21. Patient Summary This is an 85 y/o F POD1 s/p R robotic radical nephrectomy. She is doing well. Hb stable at 12. Cr 0.9. UOP has been very good. Plan/VTE VTE Prophylaxis Ordered?: Yes VTE Exclusion Mechanical Proph: N/A:VTE Prophy Ordered Plan - d/c Rangel - d/c IVF - strict I/Os - percocet prn pain - continue home meds - incentive spirometry - ambulate - SCDs in bed - advance diet as tolerated - possible discharge home later today LEXX CALDERA MD Mar 05, 2021 09:16
[2021-03-05 10:00] VITALS: BP 160/77
[2021-03-05 14:00] VITALS: BP 143/78
[2021-03-05] MEDS ORDERED: COLA100C5 PO (17:09)
[2021-03-05] MEDS ORDERED: PERCOCET PO (17:09)
--- NOTE | 2021-03-05 18:03 | DSES ---
DISCHARGE SUMMARY DATE OF ADMISSION: 03/04/2021 DATE OF DISCHARGE: 03/05/2021 ADMISSION DIAGNOSIS: Right renal neoplasm. DISCHARGE DIAGNOSIS: Right oncocytoma. ADMITTING PHYSICIAN: Kit Sandy MD DISCHARGING PHYSICIAN: Kit Sandy MD PROCEDURE PERFORMED: Right robotic-assisted laparoscopic radical nephrectomy on March 04, 2021. HISTORY OF PRESENT ILLNESS: This is an 85-year-old female who was found to have a 9 cm enhancing renal mass and underwent the above-listed procedure for treatment on March 04, 2021. She was admitted to the hospital postoperatively. HOSPITALIZATION COURSE: The patient underwent the above-listed procedure and was admitted postoperatively. Her postoperative course was unremarkable. All of her labs during her hospital stay were within acceptable limits. On postoperative day one her hemoglobin level was stable at 12. Her serum creatinine was also stable at 0.94. On postoperative day one her Rangel catheter was removed and she voided without any difficulty. Her output throughout her hospital stay was within normal limits. Her diet was advanced and she tolerated a regular diet without any nausea or vomiting. Her pain was well controlled with oral pain medication. We got her ambulating on postoperative day one and she did so without any difficulty. By the afternoon of postoperative day one she was deemed ready for discharge home. She was discharged home with the plan for her to follow up in the Urology Clinic in approximately two weeks for a postoperative check and to discuss her pathology results. CARINE
== END 2021-03-05 18:43 | disposition home or self-care (01) | DRG 657 ==
LOC: M OR 10:36 → M MSPAV 19:20
PROVIDERS: ADMIT Urology; ATTEND Urology
PROC: 8E0W4CZ Robotic Assisted Procedure of Trunk Region, Percutaneous Endoscopic Approach (ICD-10-PCS; 2021-03-04)
PROC: 0TT04ZZ Resection of Right Kidney, Percutaneous Endoscopic Approach (ICD-10-PCS; principal; 2021-03-04 13:15)
DX: D30.01 Benign neoplasm of right kidney (principal); F03.91 Unspecified dementia, unspecified severity, with behavioral disturbance; I10 Essential (primary) hypertension; Z79.899 Other long term (current) drug therapy

== ENCOUNTER → 2021-04-16 | Outpatient (CLI) | payer MEDICARE, BC ==
[~2021-04-16] MED LIST changes: +COLA100C5 PO; -LR 1,000 ML IV ONE; +PERCOCET PO; -ceFAZolin SOD 2 GM in IV 1 EA IV ONE
[2021-04-16 10:24] LABS: HEMATOCRIT 41.9 % (36.0-47.0); HEMOGLOBIN 13.1 g/dl (12.0-15.5); MEAN CORPUSCULAR HEMOGLOBIN 30.3 pg (27.0-33.0); MEAN CORPUSCULAR HGB CONC 31.3 g/dl (32.0-36.5); MEAN CORPUSCULAR VOLUME 96.8 fl (80.0-96.0); PLATELET COUNT, AUTOMATED 437 10^3/uL (150-450); RED BLOOD COUNT 4.33 10^6/uL (4.00-5.40); WHITE BLOOD COUNT 8.3 10^3/uL (4.0-10.0)
[2021-04-16 10:50] LABS: CALCIUM LEVEL 10.9 MG/DL (8.8-10.2); CREATININE FOR GFR 1.03 MG/DL (0.55-1.30); GLOMERULAR FILTRATION RATE 54.1 (>32); POTASSIUM SERUM 4.6 MEQ/L (3.5-5.1)
== END ==
LOC: M WUC 08:00
PROVIDERS: ATTEND Nurse Practitioner Women's Health
DX: N28.89 Other specified disorders of kidney and ureter (principal)

== ENCOUNTER → 2021-04-16 | Outpatient (CLI) | payer MEDICARE, BC ==
[2021-04-16 10:24] LABS: BASO % 0.4 % (0.0-1.0); EOS # 0.3 10^3/uL (0.0-0.5); EOS % 3.1 % (0.0-3.0); HEMATOCRIT 41.3 % (36.0-47.0); HEMOGLOBIN 13.1 g/dl (12.0-15.5); LYMPH # 2.1 10^3/uL (1.5-5.0); MEAN CORPUSCULAR HEMOGLOBIN 30.3 pg (27.0-33.0); MEAN CORPUSCULAR HGB CONC 31.7 g/dl (32.0-36.5); MEAN CORPUSCULAR VOLUME 95.6 fl (80.0-96.0); MONO # 0.7 10^3/uL (0.0-0.8); MONO % 7.9 % (2.0-8.0); NEUTROPHILS # 5.3 10^3/uL (1.5-8.5); NEUTROPHILS % 63.2 % (36.0-66.0); PLATELET COUNT, AUTOMATED 431 10^3/uL (150-450); RED BLOOD COUNT 4.32 10^6/uL (4.00-5.40); WHITE BLOOD COUNT 8.3 10^3/uL (4.0-10.0)
[2021-04-16 10:53] LABS: ALBUMIN 3.4 GM/DL (3.2-5.2); BILIRUBIN,TOTAL 0.2 MG/DL (0.2-1.0); CALCIUM LEVEL 10.6 MG/DL (8.8-10.2); CREATININE FOR GFR 1.02 MG/DL (0.55-1.30); GLOMERULAR FILTRATION RATE 54.7 (>32); POTASSIUM SERUM 4.6 MEQ/L (3.5-5.1); TOTAL PROTEIN 6.9 GM/DL (6.4-8.2)
== END ==
LOC: M WUC 08:02
PROVIDERS: ATTEND Family Medicine
DX: F03.91 Unspecified dementia, unspecified severity, with behavioral disturbance (principal); E78.2 Mixed hyperlipidemia

== ENCOUNTER → 2021-07-07 | Outpatient (REF) | payer MEDICARE, BC | LOC: M LAB REF 18:26 | PROVIDERS: ATTEND Plastic Surgery Surgery of the Hand | DX: L82.1 Other seborrheic keratosis (principal) ==

== ENCOUNTER → 2021-11-23 | Outpatient (CLI) | payer MEDICARE, BC ==
[~2021-11-23] MED LIST changes: -ALEN70SO PO; +ALEN70SO2 PO; +DONE-1 PO; -DONETAB6 PO
[2021-11-23 09:52] LABS: BASO % 0.3 % (0.0-1.0); EOS # 0.2 10^3/uL (0.0-0.5); EOS % 2.5 % (0.0-3.0); HEMATOCRIT 43.4 % (36.0-47.0); HEMOGLOBIN 13.6 g/dl (12.0-15.5); LYMPH # 1.9 10^3/uL (1.5-5.0); LYMPH % 22.1 % (24.0-44.0); MEAN CORPUSCULAR HEMOGLOBIN 30.7 pg (27.0-33.0); MEAN CORPUSCULAR HGB CONC 31.3 g/dl (32.0-36.5); MONO # 0.8 10^3/uL (0.0-0.8); MONO % 9.6 % (2.0-8.0); NEUTROPHILS # 5.7 10^3/uL (1.5-8.5); NEUTROPHILS % 65.2 % (36.0-66.0); PLATELET COUNT, AUTOMATED 362 10^3/uL (150-450); RED BLOOD COUNT 4.43 10^6/uL (4.00-5.40); WHITE BLOOD COUNT 8.8 10^3/uL (4.0-10.0)
[2021-11-23 10:17] LABS: ALBUMIN 3.8 GM/DL (3.2-5.2); BILIRUBIN,TOTAL 0.3 MG/DL (0.2-1.0); CALCIUM LEVEL 11.2 MG/DL (8.8-10.2); CHOLESTEROL RISK RATIO 5.854 (<5); GLOMERULAR FILTRATION RATE 55.8 (>32); POTASSIUM SERUM 4.7 MEQ/L (3.5-5.1); TOTAL PROTEIN 7.2 GM/DL (6.4-8.2)
[2021-11-23 10:48] LABS: TOTAL 25(OH) VITAMIN D 51.8 NG/ML (30.0-100.0)
== END ==
LOC: M WUC 08:00
PROVIDERS: ATTEND Family Medicine
DX: M81.0 Age-related osteoporosis without current pathological fracture (principal); I10 Essential (primary) hypertension

== ENCOUNTER → 2022-05-17 | Outpatient (CLI) | payer MEDICARE, BC ==
[2022-05-17 15:36] LABS: HEMOGLOBIN A1c 6.1 % (4.0-6.0)
[2022-05-17 18:10] LABS: ALBUMIN 3.7 G/DL (3.2-5.2); BILIRUBIN,TOTAL 0.3 MG/DL (0.3-1.2); CALCIUM LEVEL 10.2 MG/DL (8.3-10.6); CHOLESTEROL RISK RATIO 3.05 (<5); CREATININE FOR GFR 1.06 MG/DL (0.55-1.30); GLOMERULAR FILTRATION RATE 52.2 (>32); HDL CHOLESTEROL 58.9 MG/DL (>40); LDL CHOLESTEROL 95.1 MG/DL (<100); POTASSIUM SERUM 4.3 MMOL/L (3.5-5.1); TOTAL PROTEIN 6.8 G/DL
== END ==
LOC: M WUC 08:10
PROVIDERS: ATTEND Family Medicine
DX: I10 Essential (primary) hypertension (principal); R73.01 Impaired fasting glucose

== ENCOUNTER 2022-08-01 13:40 | Inpatient (IN) | payer MEDICARE, BC ==
[~2022-08-01] VITALS: Ht 152.4 cm; Wt 71.5 kg
[~2022-08-01 13:40] MED LIST changes: +AMOX875T PO; +OMEG10002 PO; +ROSU20TA5 PO
[2022-08-01 14:30] LABS: BASO % 0.3 % (0.0-1.0); EOS # 0.1 10^3/uL (0.0-0.5); EOS % 1.1 % (0.0-3.0); HEMATOCRIT 40.2 % (36.0-47.0); HEMOGLOBIN 12.7 g/dl (12.0-15.5); LYMPH # 2.6 10^3/uL (1.5-5.0); LYMPH % 22.2 % (24.0-44.0); MEAN CORPUSCULAR HEMOGLOBIN 31.1 pg (27.0-33.0); MEAN CORPUSCULAR HGB CONC 31.6 g/dl (32.0-36.5); MEAN CORPUSCULAR VOLUME 98.3 fl (80.0-96.0); MONO # 1.1 10^3/uL (0.0-0.8); MONO % 9.3 % (2.0-8.0); NEUTROPHILS # 7.7 10^3/uL (1.5-8.5); NEUTROPHILS % 66.8 % (36.0-66.0); PLATELET COUNT, AUTOMATED 330 10^3/uL (150-450); RED BLOOD COUNT 4.09 10^6/uL (4.00-5.40); WHITE BLOOD COUNT 11.5 10^3/uL (4.0-10.0)
[2022-08-01 14:40] LABS: INR 0.91; PROTHROMBIN TIME 12.4 SECONDS (12.5-14.5)
[2022-08-01 14:41] LABS: PARTIAL THROMBOPLASTIN TIME 24.6 SECONDS (24.8-34.2)
[2022-08-01 14:52] LABS: LIPASE 325 U/L (12-53)
[2022-08-01 14:54] LABS: ALBUMIN 3.5 G/DL (3.2-5.2); ALKALINE PHOSPHATASE 78 U/L (46-116); ALT/SGPT 20 U/L (7.0-40); AST/SGOT 47 U/L (<34); BILIRUBIN,DIRECT < 0.1 MG/DL (<0.4); BILIRUBIN,TOTAL 0.2 MG/DL (0.3-1.2); BLOOD UREA NITROGEN 25 MG/DL (9-23); CALCIUM LEVEL 9.7 MG/DL (8.3-10.6); CARBON DIOXIDE LEVEL 24 MMOL/L (20-31); CHLORIDE LEVEL 107 MMOL/L (98-107); CK-MB VALUE MASS 10.9 NG/ML (<3.6); CREATININE FOR GFR 1.05 MG/DL (0.55-1.30); GLOMERULAR FILTRATION RATE 52.8 (>32); GLUCOSE, FASTING 175 MG/DL (74-106); POTASSIUM SERUM 4.2 MMOL/L (3.5-5.1); SODIUM LEVEL 142 MMOL/L (136-145); TOTAL PROTEIN 6.7 G/DL (5.7-8.2)
[2022-08-01 14:56] LABS: FREE T4 0.88 NG/DL (0.89-1.76); THYROID STIMULATING HORMONE 0.557 uIU/ML (0.55-4.78)
[2022-08-01 15:10] LABS: CPK CREATINE PHOSPHOKINASE 418 U/L (34-145)
[2022-08-01] MEDS ORDERED: ASPIRIN 81MG CHEW TABLET PO ONE (15:15)
[2022-08-01] MEDS ORDERED: CLOPIDOGREL 300 MG TAB (PLAVIX) PO STA (15:27)
[2022-08-01] MEDS ORDERED: HEPARIN SOD (PORCINE) 5000UNITS/ML 1ML VIAL/SYRINGE IV ONE (15:35)
[2022-08-01] MEDS ORDERED: HEPARIN DRIP 25,000 UNITS in IV 1 EA IV SCH (15:35)
[2022-08-01 16:04] LABS: RSV AMPLIFICATION NEGATIVE (NEGATIVE)
[2022-08-01 16:11] LABS: CK-MB VALUE MASS 12.9 NG/ML (<3.6)
[2022-08-01 16:17] LABS: MB/CK RELATIVE INDEX 2.97 (< OR =4)
[2022-08-01] MEDS ORDERED: ARIC1TAB PO (17:37)
[2022-08-01] MEDS ORDERED: HOME MED LIST COMPLETE! XX SCH (17:40)
[2022-08-01 19:02] LABS: CHOLESTEROL RISK RATIO 3.09 (<5); HDL CHOLESTEROL 56.8 MG/DL (>40); LDL CHOLESTEROL 105.6 MG/DL (<100)
[2022-08-01 19:05] LABS: FREE T4 0.89 NG/DL (0.89-1.76); THYROID STIMULATING HORMONE 0.589 uIU/ML (0.55-4.78)
[2022-08-01] MEDS ORDERED: ENOXAPARIN 80MG/0.8ML SYRINGE (J1650 PER 10MG) SC SCH (21:00)
[2022-08-01] MEDS ORDERED: QUEtiapine FUMARATE 25 MG TAB PO ONE (21:00)
[2022-08-01] MEDS: ATORVASTATIN 20 MG TAB PO SCH (21:17)
[2022-08-01 22:15] VITALS: BP 128/78
[2022-08-01 22:50] LABS: HEMOGLOBIN A1c 6.3 % (4.0-6.0)
[2022-08-01] MEDS ORDERED: NITROGLYCERIN 0.3MG SUBL TAB SL PRN (23:30)
[2022-08-02 00:24] VITALS: BP 128/71
[2022-08-02] MEDS: ENOXAPARIN 80MG/0.8ML SYRINGE (J1650 PER 10MG) SC SCH ×2 (01:15→13:08)
[2022-08-02 04:16] VITALS: BP 130/72
[2022-08-02 04:43] LABS: HEMATOCRIT 38.4 % (36.0-47.0); HEMOGLOBIN 11.9 g/dl (12.0-15.5); MEAN CORPUSCULAR HEMOGLOBIN 30.4 pg (27.0-33.0); MEAN CORPUSCULAR VOLUME 98.2 fl (80.0-96.0); PLATELET COUNT, AUTOMATED 313 10^3/uL (150-450); RED BLOOD COUNT 3.91 10^6/uL (4.00-5.40); WHITE BLOOD COUNT 10.9 10^3/uL (4.0-10.0)
[2022-08-02 05:11] LABS: CALCIUM LEVEL 9.7 MG/DL (8.3-10.6); CREATININE FOR GFR 1.02 MG/DL (0.55-1.30); GLOMERULAR FILTRATION RATE 54.6 (>32); POTASSIUM SERUM 4.2 MMOL/L (3.5-5.1)
[2022-08-02 08:00] VITALS: BP 139/77
[2022-08-02] MEDS ORDERED: METOPROLOL TART 12.5 MG PER 1/2 TAB PO ONE (09:00)
[2022-08-02] MEDS ORDERED: ASPIRIN 325 MG TAB PO SCH (09:00)
[2022-08-02] MEDS ORDERED: ASPIRIN 81MG ENTERIC TABLET PO SCH (09:03)
[2022-08-02] MEDS: CLOPIDOGREL 75 MG TAB PO SCH (09:45)
[2022-08-02] MEDS: ASPIRIN 81MG ENTERIC TABLET PO SCH (09:45)
[2022-08-02 12:00] VITALS: BP 114/59
[2022-08-02 16:00] VITALS: BP 124/58
[2022-08-02 20:00] VITALS: BP 136/68
[2022-08-02] MEDS: ATORVASTATIN 20 MG TAB PO SCH (20:32)
[2022-08-02] MEDS: RAMELTEON 8 MG TAB (ROZEREM) PO PRN (21:35)
[2022-08-02] MEDS: SERTRALINE HCL 50 MG TAB PO SCH (21:36)
[2022-08-03] VITALS: BP 111/55
[2022-08-03] MEDS: ENOXAPARIN 80MG/0.8ML SYRINGE (J1650 PER 10MG) SC SCH ×2 (00:32→14:05)
[2022-08-03 04:00] VITALS: BP 133/78
[2022-08-03 05:08] LABS: BASO % 0.4 % (0.0-1.0); EOS # 0.3 10^3/uL (0.0-0.5); EOS % 2.2 % (0.0-3.0); HEMATOCRIT 38.2 % (36.0-47.0); LYMPH # 3.2 10^3/uL (1.5-5.0); LYMPH % 28.7 % (24.0-44.0); MEAN CORPUSCULAR HEMOGLOBIN 30.8 pg (27.0-33.0); MEAN CORPUSCULAR HGB CONC 31.4 g/dl (32.0-36.5); MEAN CORPUSCULAR VOLUME 98.2 fl (80.0-96.0); NEUTROPHILS # 6.7 10^3/uL (1.5-8.5); NEUTROPHILS % 59.4 % (36.0-66.0); PLATELET COUNT, AUTOMATED 310 10^3/uL (150-450); RED BLOOD COUNT 3.89 10^6/uL (4.00-5.40); WHITE BLOOD COUNT 11.2 10^3/uL (4.0-10.0)
[2022-08-03 05:39] LABS: CALCIUM LEVEL 9.4 MG/DL (8.3-10.6); CREATININE FOR GFR 1.05 MG/DL (0.55-1.30); GLOMERULAR FILTRATION RATE 52.8 (>32); POTASSIUM SERUM 4.2 MMOL/L (3.5-5.1)
[2022-08-03 08:00] VITALS: BP 110/54
[2022-08-03] MEDS ORDERED: CEFDINIR 300 MG CAP (OMNICEF) PO SCH (09:00)
[2022-08-03] MEDS: ASPIRIN 81MG ENTERIC TABLET PO SCH (09:05)
[2022-08-03] MEDS: CLOPIDOGREL 75 MG TAB PO SCH (09:05)
[2022-08-03 12:00] VITALS: BP 105/70
[2022-08-03] MEDS ORDERED: HYOSCYAMINE SULFATE 0.125 MG SUBL TABLET PO PRN (16:40)
[2022-08-03] MEDS ORDERED: BISACODYL 10MG SUPP PR PRN (16:40)
[2022-08-03] MEDS ORDERED: SCOPOLAMINE 1MG TRANSDERMAL PATCH TOP PRN (16:40)
[2022-08-03] MEDS ORDERED: ATROPINE SULFATE 1% OPHTH SOLN 2ML BTL SL PRN (16:40)
[2022-08-03] MEDS ORDERED: ONDANSETRON 4MG ORAL DISINTEGRATING TAB PO PRN (16:40)
[2022-08-03] MEDS ORDERED: ONDANSETRON 4MG 2ML VIAL IV PRN (16:40)
[2022-08-03] MEDS ORDERED: MORPHINE 10MG/0.5ML ORAL CONCENTRATE SOLUTION U/D SL PRN (16:40)
[2022-08-03] MEDS ORDERED: ACETAMINOPHEN 650MG SUPP PR PRN (16:40)
[2022-08-03] MEDS ORDERED: ACETAMINOPHEN TAB 650MG DOSE (2X325MG) PO PRN (16:40)
[2022-08-03] MEDS ORDERED: FLEET ENEMA PR PRN (16:40)
[2022-08-03] MEDS: LORazepam 1 MG TAB PO PRN (19:59)
[2022-08-03] MEDS: SERTRALINE HCL 50 MG TAB PO SCH (20:00)
[2022-08-04] MEDS: RAMELTEON 8 MG TAB (ROZEREM) PO PRN ×2 (00:42→20:35)
[2022-08-04] MEDS ORDERED: LORazepam 1 MG TAB As Ordered ONE (02:23)
[2022-08-04] MEDS: LORazepam 1 MG TAB PO PRN (02:30)
[2022-08-04 05:55] LABS: BASO % 0.4 % (0.0-1.0); EOS # 0.3 10^3/uL (0.0-0.5); EOS % 2.4 % (0.0-3.0); HEMATOCRIT 36.9 % (36.0-47.0); HEMOGLOBIN 11.4 g/dl (12.0-15.5); LYMPH # 3.4 10^3/uL (1.5-5.0); LYMPH % 31.5 % (24.0-44.0); MEAN CORPUSCULAR HEMOGLOBIN 30.6 pg (27.0-33.0); MEAN CORPUSCULAR HGB CONC 30.9 g/dl (32.0-36.5); MEAN CORPUSCULAR VOLUME 99.2 fl (80.0-96.0); MONO % 9.6 % (2.0-8.0); NEUTROPHILS # 6.1 10^3/uL (1.5-8.5); NEUTROPHILS % 55.8 % (36.0-66.0); PLATELET COUNT, AUTOMATED 311 10^3/uL (150-450); RED BLOOD COUNT 3.72 10^6/uL (4.00-5.40); WHITE BLOOD COUNT 10.8 10^3/uL (4.0-10.0)
[2022-08-04 06:03] LABS: CALCIUM LEVEL 9.3 MG/DL (8.3-10.6); CREATININE FOR GFR 1.22 MG/DL (0.55-1.30); GLOMERULAR FILTRATION RATE 44.4 (>32); MAGNESIUM LEVEL 2.1 MG/DL (1.8-2.4); POTASSIUM SERUM 4.5 MMOL/L (3.5-5.1)
[2022-08-04] MEDS: SERTRALINE HCL 50 MG TAB PO SCH (20:35)
[2022-08-05] MEDS: SERTRALINE HCL 50 MG TAB PO SCH (20:12)
[2022-08-05] MEDS: RAMELTEON 8 MG TAB (ROZEREM) PO PRN (20:15)
[2022-08-06] MEDS: LORazepam 1 MG TAB PO PRN (01:20)
[2022-08-06] MEDS: RAMELTEON 8 MG TAB (ROZEREM) PO PRN (20:34)
[2022-08-06] MEDS: SERTRALINE HCL 50 MG TAB PO SCH (20:35)
[2022-08-07] MEDS: RAMELTEON 8 MG TAB (ROZEREM) PO PRN (21:32)
[2022-08-07] MEDS: SERTRALINE HCL 50 MG TAB PO SCH ×2 (21:33→21:51)
[2022-08-08] MEDS ORDERED: MORP1SOL5 PO (10:47)
[2022-08-08] MEDS ORDERED: HYOS125TA PO (10:47)
[2022-08-08] MEDS ORDERED: ATIV1TAB10 PO (10:47)
== END 2022-08-08 13:20 | disposition hospice, home (50) | DRG 281 ==
LOC: M ED 13:40 → M ED INP 16:44 → M PCU 16:44 → M MSPAV 08-06 15:08
PROVIDERS: ADMIT Internal Medicine; ATTEND Internal Medicine
DX: I21.19 ST elevation (STEMI) myocardial infarction involving other coronary artery of inferior wall (principal); F02.818 Dementia in other diseases classified elsewhere, unspecified severity, with other behavioral disturbance; N39.0 Urinary tract infection, site not specified; F05 Delirium due to known physiological condition; G30.9 Alzheimer's disease, unspecified; I10 Essential (primary) hypertension; B96.20 Unspecified Escherichia coli [E. coli] as the cause of diseases classified elsewhere; Z51.5 Encounter for palliative care; Z66 Do not resuscitate; Z90.5 Acquired absence of kidney; Z90.710 Acquired absence of both cervix and uterus; Z87.891 Personal history of nicotine dependence; Z79.82 Long term (current) use of aspirin; Z85.528 Personal history of other malignant neoplasm of kidney; Z79.899 Other long term (current) drug therapy; Z88.8 Allergy status to other drugs, medicaments and biological substances; Z91.030 Bee allergy status; Z91.038 Other insect allergy status; Z91.048 Other nonmedicinal substance allergy status

== ENCOUNTER → 2023-09-12 | Outpatient (REF) | payer BC, MEDICARE ==
[~2023-09-12] MED LIST changes: +AMLO10TA PO; +AMOX500C PO; +ARIC1TAB PO; +ATIV1TAB10 PO; +HYOS125TA PO; +MORP1SOL5 PO; -ROSU20TA5 PO; +ROSU20TA61 PO
[2023-09-12 20:15] LABS: INFLUENZA A AMPLIFICATION NEGATIVE (NEGATIVE); INFLUENZA B AMPLIFICATION NEGATIVE (NEGATIVE)
== END ==
LOC: SKLAB8 18:05
PROVIDERS: ATTEND Internal Medicine
DX: R53.83 Other fatigue (principal)

== ENCOUNTER → 2023-09-14 | Outpatient (REF) | payer MEDICARE ==
[2023-09-14 13:35] LABS: HEMATOCRIT 37.3 % (36.0-47.0); MEAN CORPUSCULAR HEMOGLOBIN 30.4 pg (27.0-33.0); MEAN CORPUSCULAR HGB CONC 32.2 g/dl (32.0-36.5); MEAN CORPUSCULAR VOLUME 94.4 fl (80.0-96.0); PLATELET COUNT, AUTOMATED 303 10^3/uL (150-450); RED BLOOD COUNT 3.95 10^6/uL (4.00-5.40); WHITE BLOOD COUNT 7.1 10^3/uL (4.0-10.0)
[2023-09-14 14:00] LABS: BLOOD UREA NITROGEN 34 MG/DL (9-23); CALCIUM LEVEL 9.7 MG/DL (8.3-10.6); CARBON DIOXIDE LEVEL 27 MMOL/L (20-31); CHLORIDE LEVEL 108 MMOL/L (98-107); CREATININE FOR GFR 0.85 MG/DL (0.55-1.30); GLOMERULAR FILTRATION RATE > 60.0 (>32); GLUCOSE, FASTING 70 MG/DL (74-106); POTASSIUM SERUM 4.6 MMOL/L (3.5-5.1); SODIUM LEVEL 140 MMOL/L (136-145)
== END ==
LOC: SKLAB8 12:47
PROVIDERS: ATTEND Internal Medicine
DX: F03.918 Unspecified dementia, unspecified severity, with other behavioral disturbance (principal); Z79.899 Other long term (current) drug therapy

== ENCOUNTER 2023-12-06 01:03 | Emergency (ER) | payer MEDICARE ==
[2023-12-06 03:50] VITALS: BP 167/74; TEMP 97.9; O2SAT 94
== END 2023-12-06 04:17 | disposition home or self-care (01) ==
LOC: M ED 01:03
DX: S01.81XA Laceration without foreign body of other part of head, initial encounter (principal); Z51.5 Encounter for palliative care; W19.XXXA Unspecified fall, initial encounter; F03.90 Unspecified dementia, unspecified severity, without behavioral disturbance, psychotic disturbance, mood disturbance, and anxiety; Z79.2 Long term (current) use of antibiotics; Z79.899 Other long term (current) drug therapy; Y92.129 Unspecified place in nursing home as the place of occurrence of the external cause; Y93.89 Activity, other specified; Y99.9 Unspecified external cause status; Z88.8 Allergy status to other drugs, medicaments and biological substances; Z91.030 Bee allergy status; Z91.048 Other nonmedicinal substance allergy status

== ENCOUNTER → 2024-01-18 | Outpatient (REF) | payer MEDICARE ==
[2024-01-18 10:31] LABS: HEMATOCRIT 39.8 % (36.0-47.0); HEMOGLOBIN 12.7 g/dl (12.0-15.5); MEAN CORPUSCULAR HEMOGLOBIN 30.5 pg (27.0-33.0); MEAN CORPUSCULAR HGB CONC 31.9 g/dl (32.0-36.5); MEAN CORPUSCULAR VOLUME 95.4 fl (80.0-96.0); PLATELET COUNT, AUTOMATED 272 10^3/uL (150-450); RED BLOOD COUNT 4.17 10^6/uL (4.00-5.40); WHITE BLOOD COUNT 12.3 10^3/uL (4.0-10.0)
[2024-01-18 11:01] LABS: ALBUMIN 3.4 G/DL (3.2-5.2); ALKALINE PHOSPHATASE 81 U/L (46-116); ALT/SGPT 9 U/L (7.0-40); AST/SGOT < 8 U/L (<34); BILIRUBIN,TOTAL 0.6 MG/DL (0.3-1.2); BLOOD UREA NITROGEN 29 MG/DL (9-23); CARBON DIOXIDE LEVEL 25 MMOL/L (20-31); CHLORIDE LEVEL 108 MMOL/L (98-107); CREATININE FOR GFR 0.96 MG/DL (0.55-1.30); GLOMERULAR FILTRATION RATE 58.3 (>32); GLUCOSE, FASTING 263 MG/DL (74-106); POTASSIUM SERUM 4.5 MMOL/L (3.5-5.1); SODIUM LEVEL 140 MMOL/L (136-145); TOTAL PROTEIN 6.5 G/DL (5.7-8.2)
== END ==
LOC: SKLAB8 07:04
PROVIDERS: ATTEND Internal Medicine
DX: R11.10 Vomiting, unspecified (principal)

== ENCOUNTER → 2024-02-05 | Outpatient (REF) | payer MEDICARE ==
[2024-02-05 12:36] LABS: HEMATOCRIT 37.3 % (36.0-47.0); MEAN CORPUSCULAR HEMOGLOBIN 30.5 pg (27.0-33.0); MEAN CORPUSCULAR HGB CONC 32.2 g/dl (32.0-36.5); MEAN CORPUSCULAR VOLUME 94.7 fl (80.0-96.0); PLATELET COUNT, AUTOMATED 300 10^3/uL (150-450); RED BLOOD COUNT 3.94 10^6/uL (4.00-5.40); WHITE BLOOD COUNT 8.1 10^3/uL (4.0-10.0)
[2024-02-05 13:06] LABS: BLOOD UREA NITROGEN 26 MG/DL (9-23); CALCIUM LEVEL 9.7 MG/DL (8.3-10.6); CARBON DIOXIDE LEVEL 29 MMOL/L (20-31); CHLORIDE LEVEL 111 MMOL/L (98-107); CREATININE FOR GFR 0.89 MG/DL (0.55-1.30); GLOMERULAR FILTRATION RATE > 60.0 (>32); GLUCOSE, FASTING 73 MG/DL (74-106); POTASSIUM SERUM 5.1 MMOL/L (3.5-5.1); SODIUM LEVEL 144 MMOL/L (136-145)
[2024-02-05 16:10] LABS: APPEARANCE, URINE HAZY (CLEAR); BACTERIA, URINE AUTO 1+ (NEGATIVE); BILIRUBIN, URINE AUTO NEGATIVE (NEGATIVE); BLOOD, URINE BLOOD NEGATIVE (NEGATIVE); COLOR, URINE YELLOW (YELLOW); GLUCOSE, URINE (UA) AUTO NEGATIVE (NEGATIVE); KETONE, URINE AUTO NEGATIVE (NEGATIVE); LEUKOCYTE ESTERASE, URINE AUTO 2+ (NEGATIVE); NITRITE, URINE AUTO POSITIVE (NEGATIVE); PROTEIN, URINE AUTO NEGATIVE (NEGATIVE); RBC, URINE AUTO 2 /HPF (0-3); SPECIFIC GRAVITY URINE AUTO 1.015 (1.002-1.035); SQUAMOUS EPITHELIAL CELL UR AU 0 /HPF (0-6); UROBILINOGEN, URINE AUTO 0.2 mg/dL (0.0-2.0); WBC, URINE AUTO 13 /HPF (0-3)
== END ==
LOC: SKLAB8 11:38
PROVIDERS: ATTEND Internal Medicine
DX: R41.82 Altered mental status, unspecified (principal)

== ENCOUNTER → 2024-04-22 | Outpatient (REF) | payer MEDICARE ==
[~2024-04-22] MED LIST changes: -ROSU20TA61 PO; +ROSU20TA86 PO
[2024-04-22 20:27] LABS: APPEARANCE, URINE HAZY (CLEAR); BACTERIA, URINE AUTO 1+ (NEGATIVE); BILIRUBIN, URINE AUTO NEGATIVE (NEGATIVE); BLOOD, URINE BLOOD NEGATIVE (NEGATIVE); COLOR, URINE STRAW (YELLOW); GLUCOSE, URINE (UA) AUTO NEGATIVE (NEGATIVE); KETONE, URINE AUTO NEGATIVE (NEGATIVE); LEUKOCYTE ESTERASE, URINE AUTO 3+ (NEGATIVE); NITRITE, URINE AUTO NEGATIVE (NEGATIVE); PROTEIN, URINE AUTO NEGATIVE (NEGATIVE); RBC, URINE AUTO 1 /HPF (0-3); SPECIFIC GRAVITY URINE AUTO 1.004 (1.002-1.035); SQUAMOUS EPITHELIAL CELL UR AU 2 /HPF (0-6); UROBILINOGEN, URINE AUTO 0.2 mg/dL (0.0-2.0); WBC, URINE AUTO 18 /HPF (0-3)
== END ==
LOC: SKLAB8 15:29
PROVIDERS: ATTEND Internal Medicine
DX: R41.82 Altered mental status, unspecified (principal)

== ENCOUNTER → 2024-04-28 | Outpatient (REF) ==
[2024-04-28 16:46] LABS: APPEARANCE, URINE MANUAL CLEAR (CLEAR); COLOR, URINE MANUAL YELLOW (YELLOW); GLUCOSE, URINE (UA) MANUAL NEGATIVE (NEGATIVE); PROTEIN, URINE MANUAL NEGATIVE (NEGATIVE)
[2024-04-28 16:47] LABS: BILIRUBIN, URINE MANUAL NEGATIVE (NEGATIVE); BLOOD URINE MANUAL NEGATIVE (NEGATIVE); KETONE, URINE MANUAL 2+ mg/dL (NEGATIVE); LEUKOCYTE ESTERASE, URINE MAN NEGATIVE (NEGATIVE); NITRITE, URINE MANUAL NEGATIVE (NEGATIVE); UROBILINOGEN, URINE MANUAL NORMAL (NORMAL)
== END ==
LOC: SKLAB8 16:25
PROVIDERS: ATTEND Internal Medicine
DX: R10.9 Unspecified abdominal pain (principal); R41.82 Altered mental status, unspecified

== ENCOUNTER → 2024-04-29 | Outpatient (REF) | payer MEDICARE | LOC: SKLAB8 10:41 | PROVIDERS: ATTEND Internal Medicine | DX: R07.9 Chest pain, unspecified (principal); R94.31 Abnormal electrocardiogram [ECG] [EKG] ==

== ENCOUNTER → 2024-04-29 | Outpatient (REF) ==
[2024-04-29 02:11] LABS: HEMATOCRIT 41.9 % (36.0-47.0); HEMOGLOBIN 13.4 g/dl (12.0-15.5); MEAN CORPUSCULAR HEMOGLOBIN 30.6 pg (27.0-33.0); MEAN CORPUSCULAR VOLUME 95.7 fl (80.0-96.0); PLATELET COUNT, AUTOMATED 309 10^3/uL (150-450); RED BLOOD COUNT 4.38 10^6/uL (4.00-5.40); WHITE BLOOD COUNT 8.6 10^3/uL (4.0-10.0)
[2024-04-29 02:35] LABS: ALBUMIN 3.3 G/DL (3.2-5.2); BILIRUBIN,TOTAL 0.4 MG/DL (0.3-1.2); CALCIUM LEVEL 10.5 MG/DL (8.3-10.6); GLOMERULAR FILTRATION RATE 55.6 (>32); POTASSIUM SERUM 4.8 MMOL/L (3.5-5.1); TOTAL PROTEIN 6.6 G/DL (5.7-8.2)
== END ==
LOC: SKLAB8 00:45
PROVIDERS: ATTEND Internal Medicine
DX: R10.9 Unspecified abdominal pain (principal); R41.82 Altered mental status, unspecified